=== PATIENT | female | born 1990 | race Caucasian/White ===

== ENCOUNTER 2020-09-09 13:06 | Outpatient (REF) | payer OTHER, SELFPAY ==
--- NOTE | ~2020-09-09 | XR_ITS ---
EXAMINATION: XR CHEST CLINICAL INFORMATION: Cough COMPARISON: None TECHNIQUE: 2 views of the chest were obtained. FINDINGS: No significant abnormality is noted involving the heart, lungs, mediastinum, bony thorax or soft tissues. XR/XR chest 2V IMPRESSION: Unremarkable examination.
== END 2020-09-09 13:07 | disposition home or self-care (01) ==
LOC: HO.HMGCX 13:06
PROVIDERS: PCP Internal Medicine; Visit Provider Physician Assistant
DX: R05 Cough (principal)
CPT/HCPCS: 71046

== ENCOUNTER → 2020-11-15 09:23 | Outpatient (BNVA) | payer OTHER, SELFPAY | PROVIDERS: PCP Internal Medicine; Referring Provider Internal Medicine; Visit Provider Obstetrics & Gynecology ==

== ENCOUNTER 2020-12-23 09:57 | Outpatient (REF) | payer OTHER, SELFPAY ==
[2020-12-23 10:28] LABS: MANUAL DIFF FLAG NO
[2020-12-23 10:40] LABS: Basophils Percent Auto 0.4 % (0-2); Eosinophils Absolute Auto 0.1 X10*3/uL (0.0-0.4); Eosinophils Percent Auto 1.5 % (0-4); Hematocrit 40.2 % (37-47); Hemoglobin 12.8 g/dl (12.0-16.0); Imm Gran Abs Auto 0.02 X10*3/uL (0.00-0.03); Imm Gran Pct Auto 0.3 % (0.0-0.4); Lymphocytes Percent Auto 27.1 % (20-40); Mean Corpuscular HGB Conc 31.8 g/dl (31.0-35.0); Mean Corpuscular Hemoglobin 28.6 pg (27.0-33.0); Mean Corpuscular Volume 89.7 fL (80-98); Mean Platelet Volume 10.7 fL (9.4-12.3); Monocytes Absolute Auto 0.7 X10*3/uL (0.1-1.2); Monocytes Percent Auto 10.1 % (2-11); Neutrophils Absolute Auto 4.4 X10*3/uL (2.0-8.3); Neutrophils Percent Auto 60.6 % (45-73); Platelet Count 302 X10*3/uL (160-400); Red Blood Count 4.48 X10*6/uL (4.20-5.50); Red Cell Distribution Width 13.2 % (11.0-16.0); White Blood Count 7.3 X10*3/uL (4.8-10.8)
[2020-12-23 10:58] LABS: Alanine Aminotransferase 21 U/L (0-31); Albumin Level 4.3 g/dL (3.5-5.0); Alkaline Phosphatase 56 U/L (39-117); Anion Gap 14 (12-20); Aspartate Amino Transferase 18 U/L (5-31); Bilirubin Total 0.3 mg/dL (0.0-1.0); Blood Urea Nitrogen 14 mg/dL (9-16); Calcium 9.5 mg/dL (8.4-10.2); Carbon Dioxide 24 mmol/L (22-29); Chloride 106 mmol/L (96-108); Cholesterol 204 mg/dL; Estimated Glomerular Filt Rate > 60; Glucose Fasting 89 mg/dL (60-99); HDL Cholesterol 57 mg/dL; LDL Cholesterol Calculated 111 mg/dl; Potassium 4.6 mmol/L (3.3-5.1); Sodium 139 mmol/L (135-145); Total Protein 7.5 g/dL (6.5-8.0); Triglycerides 182 mg/dL
[2020-12-23 11:18] LABS: TSH reflex Free T4 1.42 uIU/mL (0.32-4.0)
[2020-12-23 14:23] LABS: Vitamin B12 235 pg/mL (200-900)
[2020-12-29 14:40] LABS: Vitamin D 25-OH, D2 <4 ng/mL; Vitamin D 25-OH, D3 33 ng/mL; Vitamin D 25-OH, Total 33 ng/mL (30-100)
== END 2020-12-23 09:58 | disposition home or self-care (01) ==
LOC: HO.LAB 09:57
PROVIDERS: PCP Internal Medicine; Visit Provider Internal Medicine
DX: Z00.01 Encounter for general adult medical examination with abnormal findings (principal); R61 Generalized hyperhidrosis; F41.1 Generalized anxiety disorder; R53.83 Other fatigue; E66.09 Other obesity due to excess calories
CPT/HCPCS: 36415; 80053; 80061; 82306; 82607; 84443; 85025

== ENCOUNTER 2021-11-20 09:42 | Outpatient (REF) | payer OTHER, SELFPAY ==
[2021-11-20 14:22] LABS: CT PCR NOT DETECTED (Not Detect.); NG PCR NOT DETECTED (Not Detect.)
[2021-11-21 11:04] LABS: BV Int Neg Control Negative (Negative); BV Int Pos Control Positive (Positive)
[2021-11-26 08:57] LABS: HPV mRNA E6/E7 rflx Not Detected (Not Detected)
== END 2021-11-20 09:43 | disposition home or self-care (01) ==
LOC: HO.LAB 09:42
PROVIDERS: Visit Provider Advanced Practice Midwife
DX: Z01.419 Encounter for gynecological examination (general) (routine) without abnormal findings (principal); Q51.28 Other and unspecified doubling of uterus; Z11.3 Encounter for screening for infections with a predominantly sexual mode of transmission
CPT/HCPCS: 87480; 87491; 87510; 87591; 87624; 87660; 88142

== ENCOUNTER 2022-06-21 08:27 | Outpatient (REF) | payer OTHER, SELFPAY ==
[2022-06-21 11:31] LABS: MANUAL DIFF FLAG NO
[2022-06-21 11:45] LABS: Basophils Percent Auto 0.5 % (0-2); Eosinophils Absolute Auto 0.1 X10*3/uL (0.0-0.4); Hematocrit 42.1 % (37.0-47.0); Hemoglobin 13.6 g/dl (12.0-16.0); Imm Gran Abs Auto 0.02 X10*3/uL (0.00-0.03); Imm Gran Pct Auto 0.2 % (0.0-0.4); Lymphocytes Absolute Auto 1.8 X10*3/uL (1.2-4.9); Lymphocytes Percent Auto 21.4 % (20-40); Mean Corpuscular HGB Conc 32.3 g/dl (31.0-35.0); Mean Corpuscular Hemoglobin 29.2 pg (27.0-33.0); Mean Corpuscular Volume 90.5 fL (80.0-98.0); Mean Platelet Volume 10.8 fL (9.4-12.3); Monocytes Absolute Auto 0.7 X10*3/uL (0.1-1.2); Monocytes Percent Auto 8.6 % (2-11); Neutrophils Absolute Auto 5.7 x10*3/uL (2.0-8.3); Neutrophils Percent Auto 68.3 % (45-73); Platelet Count 287 X10*3/uL (160-400); Red Blood Count 4.65 X10*6/uL (4.20-5.50); Red Cell Distribution Width 13.5 % (11.0-16.0); White Blood Count 8.3 X10*3/uL (4.8-10.8)
[2022-06-21 12:40] LABS: Alanine Aminotransferase 19 U/L (0-31); Albumin Level 4.4 g/dL (3.5-5.0); Alkaline Phosphatase 64 U/L (39-117); Anion Gap 11 (12-20); Aspartate Amino Transferase 18 U/L (5-31); Bilirubin Total 0.6 mg/dL (0.0-1.0); Blood Urea Nitrogen 13 mg/dL (9-16); Calcium 9.2 mg/dL (8.4-10.2); Carbon Dioxide 24 mmol/L (22-29); Chloride 107 mmol/L (96-108); Cholesterol 238 mg/dL; Estimated Glomerular Filt Rate > 60; Glucose Fasting 94 mg/dL (60-99); HDL Cholesterol 51 mg/dL; LDL Cholesterol Calculated 161 mg/dl; Potassium 4.3 mmol/L (3.3-5.1); Sodium 138 mmol/L (135-145); Total Protein 7.3 g/dL (6.5-8.0); Triglycerides 132 mg/dL
[2022-06-21 12:52] LABS: TSH reflex Free T4 1.65 uIU/mL (0.32-4.0); Vitamin B12 615 pg/mL (200-900)
== END 2022-06-21 08:28 | disposition home or self-care (01) ==
LOC: HO.HMGCLDS 08:27
PROVIDERS: PCP Internal Medicine; Visit Provider Internal Medicine
DX: E66.9 Obesity, unspecified (principal); R20.2 Paresthesia of skin; H65.90 Unspecified nonsuppurative otitis media, unspecified ear; F41.1 Generalized anxiety disorder; Z91.09 Other allergy status, other than to drugs and biological substances
CPT/HCPCS: 36415; 80053; 80061; 82607; 84443; 85025

== ENCOUNTER 2022-10-14 11:38 | Outpatient (REF) | payer OTHER, SELFPAY ==
[2022-10-14 12:28] LABS: Influenza A PCR NEGATIVE (Negative); Influenza B PCR NEGATIVE (Negative); Resp Syncy Virus RNA Qual PCR NEGATIVE (Negative); SARS COV2 PCR INHOUSE NEGATIVE (Negative)
== END 2022-10-14 11:39 | disposition home or self-care (01) ==
LOC: HO.LNP 11:38
PROVIDERS: Visit Provider Physician Assistant
DX: Z20.822 Contact with and (suspected) exposure to COVID-19 (principal); J02.9 Acute pharyngitis, unspecified
CPT/HCPCS: 0241U

== ENCOUNTER 2022-10-23 12:10 | Outpatient (REF) | payer OTHER, SELFPAY | END 2022-10-23 12:11 | disposition home or self-care (01) | LOC: HO.LNP 12:10 | PROVIDERS: Visit Provider Internal Medicine | DX: N30.90 Cystitis, unspecified without hematuria (principal) | CPT/HCPCS: 87086; 87088; 87186 ==

== ENCOUNTER 2023-01-17 09:33 | Outpatient (AMB) | payer OTHER, SELFPAY ==
--- NOTE | 2023-01-17 09:35 | A.OFFPC_ITS ---
Vital Signs 01/17/23 09:36 Height 5 ft 3 in Weight 189 lb 4 oz BMI 33.5 BP 120/74 Blood Pressure Location Rt brachial Position Sitting Pulse 102 H Pulse Source Pulse Oximeter Pulse Oximetry (%) 96 Oxygen Delivery Method Room Air Intake Visit Reasons: 3 month follow up Allergies bee pollen Allergy (Intermediate, Verified 01/17/23 09:39) swelling itchy Medication List - Last Reconciled 01/17/23 by Hugo Gomez MD albuterol sulfate 90 mcg/actuation (ProAir HFA) 1 inh inhalation Q4-6H PRN buspirone 5 mg PO ONCE PRN 90 days cetirizine (Zyrtec) 10 mg PO DAILY PRN fluconazole (Diflucan) 150 mg PO Q3D 2 doses fluoxetine 10 mg PO DAILY 90 days gabapentin 200 mg (2 x 100 mg) PO BEDTIME 90 days glycopyrrolate 1 mg PO BID-TID PRN nitrofurantoin monohyd/m-cryst 100 mg (Macrobid) 100 mg PO Q12H 5 days norethindrone-ethin estradiol 1-35 mg-mcg (Nortrel) 1 tab PO DAILY ondansetron HCl 4 mg PO BID-TID PRN Tobacco use date assessed: 01/17/23 Dental Screening Dental Screen Date: 01/17/23 Did you have a dental visit in the last 12 months?: Yes Did you have a dental problem in the last 6 months where you did not have access to dental care?: No Was dental information given to patient?: Patient has dentist HPI 3 month follow up HPI Details Patient is 32-year-old female came in today for her regular follow-up appointment Patient has been having feeling of flushing excessive heat off and on We had a detailed discussion about it she also has excessive sweating problem , she is being treated for that through dermatology She is taking Glycopyrolate, and that is helping her. We had a detailed discussion about autonomic dysfunction, also hyperfunctioning thyroid can cause such feeling I have ordered labs for her she is to do them fasting Patient also have a elevated lipids that need to be monitored. Anxiety stable patient is on fluoxetine 10 mg and buspirone 5 mg daily Allergies are stable as well patient takes Zyrtec only as needed. Neuralgia pain has improved with gabapentin 200 mg at night. BMI is elevated at 33.5, patient is trying to lose weight. She is to return in 3 months for follow-up [facility] Medical History Tonsillectomy planned Asthma COVID-19 long hauler Cough present for greater than 3 weeks Surgical History [place] teeth extracted Social History Housing: House Patient Tobacco Use Status: Never used Tobacco e-Cigarette/Vaping Use: Never Used Second Hand Smoke Exposure: No Current occupational status: unemployed Cognitive needs: No Hearing needs: No Vision needs: No Female Reproductive History Menstrual Age of Menarche: 11 Questionnaire Thrive Questionnaire Date Thrive assessed: 06/21/22 AUDIT C Alcohol Use Questionnaire (AUDIT-C) 1. How often do you have a drink containing alcohol?: 2-4 times a month 2. How many drinks containing alcohol do you have on a typical day when you are drinking?: 1 or 2 3. How often do you have six or more drinks on one occasion?: Never Total Score: 2 Score Reviewed/Action Taken: Yes MILADYS-7 AMB Questionnaire MILADYS-7 Date MILADYS - 7 assessed: 06/21/22 Source: Developed by Drs. Garfield Kimball, Ailin Corrales, Julio C Slaughter and colleagues, with an educational andi from [employer]. Review of Systems Const Denies chills and Denies fever(s) ENT Denies epistaxis and Denies nasal discharge Card Denies chest pain Resp Denies chest congestion, Denies cough and Denies hemoptysis GI Denies diarrhea and Denies nausea Skin/Breast Denies rash Neuro Reports no additional complaints Psych Reports no additional complaints Endo Reports no additional complaints Physical exam (Primary Care) Vital Signs: Last Vital Signs Pulse 102 H 01/17/23 09:36 BP 120/74 01/17/23 09:36 Pulse Ox 96 01/17/23 09:36 Oxygen Delivery Method Room Air 01/17/23 09:36 BMI result Body Mass Index 33.5 Tobacco/Smoking Status: Tobacco use Status Tobacco use date assessed 01/17/23 01/17/23 09:40 Patient Tobacco Use Status Never used Tobacco 01/17/23 09:37 e-Cigarette/Vaping Use Never Used 01/17/23 09:37 Thrive Assessment: Date of Thrive Assessment Date Thrive assessed 06/21/22 01/17/23 09:37 Const General: cooperative, comfortable and no acute distress Orientation/consciousness: patient oriented x3 HENMT Head: Yes normocephalic Eyes General: appearance normal, both eyes and all related structures Neck Neck: Yes supple Resp Effort & Inspection: normal respiratory effort, no cough and no stridor Cardio Rhythm: regular rhythm Heart sounds: S1 normal heart sound present and S2 normal heart sound present Skin General skin exam: turgor normal Neuro General: patient oriented x3, tone normal and moves all extremities Extrem Right lower extremity: no edema Left lower extremity: no edema Assessment and Plan Assessment & Plan (1) Anxiety, generalized: Code(s): F41.1 - Generalized anxiety disorder (2) Hyperhidrosis: Code(s): R61 - Generalized hyperhidrosis (3) Obesity due to excess calories: Code(s): E66.09 - Other obesity due to excess calories Qualifiers: Obesity classification: adult class 1 (BMI 30 - 34.9) Serious obesity comorbidity presence: without serious comorbidity Body mass index: BMI 32.0- 32.9 Qualified Code(s): E66.09 - Other obesity due to excess calories; Z68.32 - Body mass index [BMI] 32.0-32.9, adult (4) Meralgia paraesthetica: Code(s): G57.10 - Meralgia paresthetica, unspecified lower limb Qualifiers: Laterality: left Qualified Code(s): G57.12 - Meralgia paresthetica, left lower limb (5) Environmental allergies: Code(s): Z91.09 - Other allergy status, other than to drugs and biological substances (6) Lipid disorder: Code(s): E78.9 - Disorder of lipoprotein metabolism, unspecified (7) Facial flushing: Code(s): R23.2 - Flushing Plan Patient is 32-year-old female came in today for her regular follow-up appointment Patient has been having feeling of flushing excessive heat off and on We had a detailed discussion about it she also has excessive sweating problem , she is being treated for that through dermatology She is taking Glycopyrolate, and that is helping her. We had a detailed discussion about autonomic dysfunction, also hyperfunctioning thyroid can cause such feeling I have ordered labs for her she is to do them fasting Patient also have a elevated lipids that need to be monitored. Anxiety stable patient is on fluoxetine 10 mg and buspirone 5 mg daily Allergies are stable as well patient takes Zyrtec only as needed. Neuralgia pain has improved with gabapentin 200 mg at night. BMI is elevated at 33.5, patient is trying to lose weight. She is to return in 3 months for follow-up Orders: Orders Complete Blood Count Auto Diff Today E66.09 - Other obesity due to excess calories, E78.9 - Disorder of lipoprotein metabolism, unspecified, F41.1 - Generalized anxiety disorder, G57.10 - Meralgia paresthetica, unspecified lower limb, R23.2 - Flushing, R61 - Generalized hyperhidrosis, Z91.09 - Other allergy status, other than to drugs and biological substances Vitamin B12 Today E66.09 - Other obesity due to excess calories, E78.9 - Disorder of lipoprotein metabolism, unspecified, F41.1 - Generalized anxiety disorder, G57.10 - Meralgia paresthetica, unspecified lower limb, R23.2 - Flushing, R61 - Generalized hyperhidrosis, Z91.09 - Other allergy status, other than to drugs and biological substances Vitamin D 25-OH (D2 and D3) Today E66.09 - Other obesity due to excess calories, E78.9 - Disorder of lipoprotein metabolism, unspecified, F41.1 - Generalized anxiety disorder, G57.10 - Meralgia paresthetica, unspecified lower limb, R23.2 - Flushing, R61 - Generalized hyperhidrosis, Z91.09 - Other allergy status, other than to drugs and biological substances Comprehensive [place]. Panel Fast Today E66.09 - Other obesity due to excess calories, E78.9 - Disorder of lipoprotein metabolism, unspecified, F41.1 - Generalized anxiety disorder, G57.10 - Meralgia paresthetica, unspecified lower limb, R23.2 - Flushing, R61 - Generalized hyperhidrosis, Z91.09 - Other allergy status, other than to drugs and biological substances Lipid Panel Today E66.09 - Other obesity due to excess calories, E78.9 - Disorder of lipoprotein metabolism, unspecified, F41.1 - Generalized anxiety disorder, G57.10 - Meralgia paresthetica, unspecified lower limb, R23.2 - Flushing, R61 - Generalized hyperhidrosis, Z91.09 - Other allergy status, other than to drugs and biological substances TSH reflex Free T4 Today E66.09 - Other obesity due to excess calories, E78.9 - Disorder of lipoprotein metabolism, unspecified, F41.1 - Generalized anxiety disorder, G57.10 - Meralgia paresthetica, unspecified lower limb, R23.2 - Flushing, R61 - Generalized hyperhidrosis, Z91.09 - Other allergy status, other than to drugs and biological substances Ferritin Today E66.09 - Other obesity due to excess calories, E78.9 - Disorder of lipoprotein metabolism, unspecified, F41.1 - Generalized anxiety disorder, G57.10 - Meralgia paresthetica, unspecified lower limb, R23.2 - Flushing, R61 - Generalized hyperhidrosis, Z91.09 - Other allergy status, other than to drugs and biological substances Coding Level of Care Code Est Pt Level 4 (16789) Diagnoses Anxiety, generalized F41.1 Hyperhidrosis R61 Class 1 obesity due to excess calories without serious comorbidity with body mass index (BMI) of 32.0 to 32.9 in adult E66.09; Z68.32 Obesity classification: adult class 1 (BMI 30 - 34.9) Serious obesity comorbidity presence: without serious comorbidity Body mass index: BMI 32.0-32.9 Meralgia paresthetica of left side G57.12 Laterality: left Environmental allergies Z91.09 Lipid disorder E78.9 Facial flushing R23.2
[2023-01-17 09:36] VITALS: BP 120/74; PULSE 102; O2SAT 96; BMI 33.5
== END 2023-01-17 11:18 | disposition home or self-care (01) ==
PROVIDERS: PCP Internal Medicine; Visit Provider Internal Medicine
DX: R61 Generalized hyperhidrosis (principal); Z68.32 Body mass index [BMI] 32.0-32.9, adult; Z91.09 Other allergy status, other than to drugs and biological substances; E66.09 Other obesity due to excess calories; F41.1 Generalized anxiety disorder; G57.12 Meralgia paresthetica, left lower limb; E78.9 Disorder of lipoprotein metabolism, unspecified; R23.2 Flushing
CPT/HCPCS: 99214

== ENCOUNTER 2023-01-29 10:22 | Outpatient (AMB) | payer OTHER, SELFPAY ==
--- NOTE | 2023-01-29 10:25 | MHC.OFFVIS ---
Intake Vital Signs 01/29/23 10:27 Height 5 ft 3 in Weight 192 lb BMI 34.0 BP 110/76 Intake Visit Reasons: [employer]IN [employer]ER annual exam Intake Note: randomly cramping not necessarily on her period Director Of Medical Review Required: No Information Interpreted: non-clinical & clinical Document Photographer: Document Photographer Present (Aidyn) Allergies bee pollen Allergy (Intermediate, Verified 01/29/23 10:30) swelling itchy Medication List - Last Reconciled 01/29/23 by Areli Nixon CNM albuterol sulfate 90 mcg/actuation (ProAir HFA) 1 inh inhalation Q4-6H PRN buspirone 5 mg PO ONCE PRN 90 days cetirizine (Zyrtec) 10 mg PO DAILY PRN fluoxetine 10 mg PO DAILY 90 days gabapentin 200 mg (2 x 100 mg) PO BEDTIME 90 days glycopyrrolate 1 mg PO BID-TID PRN norethindrone-ethin estradiol 1-35 mg-mcg (Nortrel) 1 tab PO DAILY ondansetron HCl 4 mg PO BID-TID PRN Is last menstrual period known: Yes Last menstrual period: 12/30/22 Post menopausal: No HPI [employer]IN [employer]ER annual exam HPI Details 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 She is on control pills and has been since she was very young. Extensive discussion took place about her history of the past year including visit last year when she was off the pills, and not sexually active and I recommend she take is sometime at that time to see what her periods would be like without being on the pills but then she became sexually active and she started back on the pills again. She had a didelphys uterus diagnosed some years ago when a flap of skin was noted 0 covering her cervix. Extensive discussion took place it past visits about this and was refreshed again with the patient today today she also is curious about PCOS because she has been reading about it and she looked up cramping and PCOS came up is 1 of the possibilities she does not have increased facial hair she does struggle with weight. She does have times when she still very fatigued she finds that if she smokes weed it gives her energy and then she can go exercise and work out and she does weight lifting and crunches and various other exercises. She has been on the pills since her for 5 months break last year and likes them and they work for her and she is not interested in changing them. She is sexually active. She is not in a place where she is contemplating any childbearing at this time ?not yet?. She does know that she may have challenges both getting and then continuing the past the early stage and also challenges with pre term labor and most likely a need for . She does have elevated cholesterol and she has fasting labs that she has to go get done for her primary care provider. She has had her thyroid checked in that turned out fine she says her primary cyst exploring other possibilities for her symptoms of fatigue and hot flashes and exploring autoimmune issues. [facility] Medical History (Updated 01/29/23 @ 11:23 by Areli Nxion CNM) Uterus didelphus Tonsillectomy planned Asthma COVID-19 long hauler Cough present for greater than 3 weeks Surgical History [place] teeth extracted Social History (Updated 01/29/23 @ 10:32 by NASREEN Arcos) Housing: House Alcohol intake: current Alcohol intake frequency: holidays/special occasions only Patient Tobacco Use Status: Never used Tobacco e-Cigarette/Vaping Use: Never Used Second Hand Smoke Exposure: No Current occupational status: unemployed Cognitive needs: No Hearing needs: No Vision needs: No Female Reproductive History Menstrual Age of Menarche: 11 Duration of menses: 3-5 days Date of last menstrual period: 12/30/22 control method: pills Total pregnancies: 0 Date of last pap smear: 11/21/21 (negative) History of abnormal pap smear: Yes (ASCUS 2018) Physical Exam Vital Signs: Last Vital Signs BP 110/76 01/29/23 10:27 BMI result Body Mass Index 34.0 Const General: healthy appearing, comfortable, no acute distress, well developed and alert Nutritional Appearance: average body habitus Orientation/consciousness: patient oriented x3 Limitations: no limitations HEENT Head: Yes normocephalic Neck Neck: Yes normal visual inspection Thyroid: Thyroid normal Chest Chest palpation & inspection: normal inspection of the chest Breast/axilla inspection: normal inspection of the breasts and normal inspection of the axillae Breast/axilla palpation: normal palpation of the breasts and normal palpation of the axillae Resp Effort & Inspection: normal respiratory effort GI Inspection: Yes normal to inspection, No Abdominal wall edema and No distended Palpation (GI): Soft to palpation and nontender Other: Cervicis difficult to visualize today during this exam. They are pink and smooth by tissue between them left one appears more prominent today than the right one. Uterus is normal sized nontender not enlarged adnexa nontender excellent tone with Kegel General: Yes bladder normal to palpation External Female Exam: normal external appearance and normal appearance of the urethra Speculum Exam - Vagina: normal appearance of the vagina, normal palpation and normal vaginal discharge Speculum Exam - Cervix: normal appearance of the cervix, normal palpation and nontender Bimanual exam- vagina & uterus: normal bimanual exam, normal palpation, uterine size normal, bladder normal to palpation, consistency normal, normal palpation, uterine mobility normal, uterine shape normal, No Cervical tenderness present, non-tender and no cervical motion tenderness Bimanual Exam- Adnexa, other: normal adnexae, no masses, normal and No adnexal tenderness Neuro General: patient oriented x3 Results Reviewed Results Reviewed: Name: Bernice Severino Age/Sex: 31/F Attending: Areli Nixon CNM : 1990 Submitted by: Areli Nixon CNM Copies to: MR #: [id number] Status: DEP REF Collected: 11/20/21 Location: .LAB Received: 11/21/21 Interpretation A. Satisfactory for evaluation. No endocervical cells seen. Negative for intraepithelial lesion or malignancy. HPV mRNA E6/E7: NOT DETECTED This assay detects E6/E7 viral messenger RNA (mRNA) from 14 high-risk HPV types (16, 18, 31, 33, 35, 39, 45, 51, 52, 56, 58, 59, 66, 68) HPV testing performed by [facility], [place], [place]. See reference laboratory pion of the EMR for entire report. B. Satisfactory for evaluation. Negative for intraepithelial lesion or malignancy. HPV mRNA E6/E7: NOT DETECTED This assay detects E6/E7 viral messenger RNA (mRNA) from 14 high-risk HPV types (16, 18, 31, 33, 35, 39, 45, 51, 52, 56, 58, 59, 66, 68) HPV testing performed by [facility], [place], [place]. See reference laboratory pion of the EMR for entire report. 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 B. Left cervix, equals negative with negative HPV. Code(s): Z12.4 - Encounter for screening for malignant neoplasm of cervix (4) Counseling for control, oral contraceptives: Code(s): Z30.09 - Encounter for other general counseling and advice on contraception (5) Well woman exam with routine gynecological exam: Code(s): Z01.419 - Encounter for gynecological examination (general) (routine) without abnormal findings (6) Obesity due to excess calories: Code(s): E66.09 - Other obesity due to excess calories Qualifiers: Obesity classification: adult class 1 (BMI 30 - 34.9) Serious obesity comorbidity presence: without serious comorbidity Body mass index: BMI 32.0-32.9 Qualified Code(s): E66.09 - Other obesity due to excess calories; Z68.32 - Body mass index [BMI] 32.0-32.9, adult (7) Tiredness: Code(s): R53.83 - Other fatigue (8) Uterine cramping: Code(s): N94.89 - Other specified conditions associated with female genital organs and menstrual cycle Plan 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 She is on control pills and has been since she was very young. Extensive discussion took place about her history of the past year including visit last year when she was off the pills, and not sexually active and I recommend she take is sometime at that time to see what her periods would be like without being on the pills but then she became sexually active and she started back on the pills again. She had a didelphys uterus diagnosed some years ago when a flap of skin was noted 0 covering her cervix. Extensive discussion took place it past visits about this and was refreshed again with the patient today today she also is curious about PCOS because she has been reading about it and she looked up cramping and PCOS came up is 1 of the possibilities she does not have increased facial hair she does struggle with weight. She does have times when she still very fatigued she finds that if she smokes weed it gives her energy and then she can go exercise and work out and she does weight lifting and crunches and various other exercises. She has been on the pills since her for 5 months break last year and likes them and they work for her and she is not interested in changing them. She is sexually active. She is not in a place where she is contemplating any childbearing at this time ?not yet?. She does know that she may have challenges both getting and then continuing the past the early stage and also challenges with pre term labor and most likely a need for . She does have elevated cholesterol and she has fasting labs that she has to go get done for her primary care provider. She has had her thyroid checked in that turned out fine she says her primary cyst exploring other possibilities for her symptoms of fatigue and hot flashes and exploring autoimmune issues. In light of all of the above all of these issues were explored in detail. Decision made to order up pelvic ultrasound just to see if there is development of anything that could explain her cramping. Her periods are still never quite ?? normal they sometimes are just very light and brown and spotty and then sometimes still be read every few months they come at the right time with the pills and she does like that. Explored whether not she was interested or had any symptoms that really aligned with PCOS and she does not really have any others with the possible exception of the obesity but she does not have any facial hair or anything like that discussed that I may add some labs to her order for her fasting labs that she will be getting done soon. Will have a tele visit after the ultrasound to review the results. Additionally I am refilling her control pills for her explored the possibility of lowering the does but she is happy on these pills so we are leaving them as they are. Orders: Orders Bacterial Vaginosis Panel Today Q51.28 - Other and unspecified doubling of uterus, Z01.419 - Encounter for gynecological examination (general) (routine) without abnormal findings Pap Smear Today Q51.28 - Other and unspecified doubling of uterus, Z01.419 - Encounter for gynecological examination (general) (routine) without abnormal findings US pelvic and transvaginal Today E66.09 - Other obesity due to excess calories, N94.89 - Other specified conditions associated with female genital organs and menstrual cycle, Q51.28 - Other and unspecified doubling of uterus, R53.83 - Other fatigue, Z01.419 - Encounter for gynecological examination (general) (routine) without abnormal findings, Z12.4 - Encounter for screening for malignant neoplasm of cervix, Z20.2 - Contact with and (suspected) exposure to infections with a predominantly sexual mode of transmission, Z30.09 - Encounter for other general counseling and advice on contraception CT NG by PCR Today Q51.28 - Other and unspecified doubling of uterus, Z01.419 - Encounter for gynecological examination (general) (routine) without abnormal findings Testosterone, Free/Total Today N94.89 - Other specified conditions associated with female genital organs and menstrual cycle, Q51.28 - Other and unspecified doubling of uterus, Z01.419 - Encounter for gynecological examination (general) (routine) without abnormal findings, Z12.4 - Encounter for screening for malignant neoplasm of cervix, Z20.2 - Contact with and (suspected) exposure to infections with a predominantly sexual mode of transmission, Z30.09 - Encounter for other general counseling and advice on contraception Medications: Refilled norethindrone-ethin estradiol 1-35 mg-mcg (Nortrel) 1 tab PO DAILY 84 tabs 4RF Coding Level of Care Code Est Pt Prev Care 18-39y(85489) Diagnoses Uterus didelphus Q51.28 Potential exposure to STD Z20.2 Cervical cancer screening Z12.4 Counseling for control, oral contraceptives Z30.09 Well woman exam with routine gynecological exam Z01.419 Class 1 obesity due to excess calories without serious comorbidity with body mass index (BMI) of 32.0 to 32.9 in adult E66.09; Z68.32 Obesity classification: adult class 1 (BMI 30 - 34.9) Serious obesity comorbidity presence: without serious comorbidity Body mass index: BMI 32.0-32.9 Tiredness R53.83 Uterine cramping N94.89
[2023-01-29 10:27] VITALS: BP 110/76; BMI 34.0
== END 2023-01-29 11:27 | disposition home or self-care (01) ==
PROVIDERS: PCP Internal Medicine; Visit Provider Advanced Practice Midwife
DX: Z01.419 Encounter for gynecological examination (general) (routine) without abnormal findings (principal); Q51.28 Other and unspecified doubling of uterus; E66.09 Other obesity due to excess calories; Z68.32 Body mass index [BMI] 32.0-32.9, adult
CPT/HCPCS: 99395

== ENCOUNTER 2023-01-29 10:22 | Outpatient (REF) | payer OTHER, SELFPAY ==
[2023-01-29 16:50] LABS: CT PCR NOT DETECTED (Not Detect.); NG PCR NOT DETECTED (Not Detect.)
[2023-01-30 14:30] LABS: BV Int Neg Control Negative (Negative); BV Int Pos Control Positive (Positive)
[2023-01-31 22:43] LABS: HPV mRNA E6/E7 rflx Not Detected (Not Detected)
== END 2023-01-29 10:23 | disposition home or self-care (01) ==
LOC: HO.LNP 10:22
PROVIDERS: PCP Internal Medicine; Visit Provider Advanced Practice Midwife
DX: Z01.419 Encounter for gynecological examination (general) (routine) without abnormal findings (principal); Z11.51 Encounter for screening for human papillomavirus (HPV); Z20.2 Contact with and (suspected) exposure to infections with a predominantly sexual mode of transmission; Q51.28 Other and unspecified doubling of uterus
CPT/HCPCS: 0353U; 87480; 87510; 87624; 87660; 88142

== ENCOUNTER 2023-02-25 15:38 | Outpatient (REF) | payer OTHER, SELFPAY ==
--- NOTE | ~2023-02-25 | US_ITS ---
EXAMINATION: US PELVIS CLINICAL INFORMATION: Encounter for gynecologic examination. Last menstrual period a month ago. COMPARISON: Pelvic ultrasound 08/05/2017. TECHNIQUE: Ultrasound of the pelvis is performed using both transabdominal and transvaginal transducers along with Doppler. Transvaginal imaging is performed due to inadequate visualization transabdominally. FINDINGS: The uterus is anteverted and measures 7.8 x 2.6 x 3.7 cm and is heterogeneous. No discrete fibroids identified. 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 Endometrium in the right uterine horn with thickness of 0.2 cm and endometrium in the left uterine horn with thickness of 0.2 cm. There is no significant free fluid. Bilateral ovaries are unremarkable. Right ovary measures 2.6 x 0.9 x 1.9 cm, volume 2.3 mL. Left ovary measures 3.6 x 1.1 x 1.8 cm, volume 3.7 mL. US/US pelvic and transvaginal IMPRESSION: 1. No discrete fibroids. 2. 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 Endometrium in the right uterine horn with thickness of 0.2 cm and endometrium in the left uterine horn with thickness of 0.2 cm.
== END 2023-02-25 15:39 | disposition home or self-care (01) ==
LOC: HO.US 15:38
PROVIDERS: PCP Internal Medicine; Visit Provider Advanced Practice Midwife
DX: Q51.28 Other and unspecified doubling of uterus (principal); Z20.2 Contact with and (suspected) exposure to infections with a predominantly sexual mode of transmission; E66.09 Other obesity due to excess calories; R53.83 Other fatigue; N94.89 Other specified conditions associated with female genital organs and menstrual cycle
CPT/HCPCS: 76830; 76856

== ENCOUNTER → 2023-03-07 13:15 | Outpatient (BNVA) | payer OTHER, SELFPAY | PROVIDERS: PCP Internal Medicine; Visit Provider Advanced Practice Midwife ==

== ENCOUNTER 2023-04-14 07:17 | Outpatient (REF) | payer OTHER, SELFPAY ==
[2023-04-14 11:15] LABS: MANUAL DIFF FLAG NO
[2023-04-14 11:50] LABS: Basophils Percent Auto 0.4 % (0-2); Eosinophils Absolute Auto 0.2 X10*3/uL (0.0-0.4); Eosinophils Percent Auto 2.2 % (0-4); Hematocrit 39.9 % (37.0-47.0); Hemoglobin 13.1 g/dl (12.0-16.0); Imm Gran Abs Auto 0.02 X10*3/uL (0.00-0.03); Imm Gran Pct Auto 0.3 % (0.0-0.4); Lymphocytes Absolute Auto 2.7 X10*3/uL (1.2-4.9); Lymphocytes Percent Auto 37.4 % (20-40); Mean Corpuscular HGB Conc 32.8 g/dl (31.0-35.0); Mean Corpuscular Hemoglobin 29.3 pg (27.0-33.0); Mean Corpuscular Volume 89.3 fL (80.0-98.0); Mean Platelet Volume 11.1 fL (9.4-12.3); Monocytes Absolute Auto 0.6 X10*3/uL (0.1-1.2); Monocytes Percent Auto 8.1 % (2-11); Neutrophils Absolute Auto 3.8 x10*3/uL (2.0-8.3); Neutrophils Percent Auto 51.6 % (45-73); Platelet Count 312 X10*3/uL (160-400); Red Blood Count 4.47 X10*6/uL (4.20-5.50); Red Cell Distribution Width 13.2 % (11.0-16.0); White Blood Count 7.3 X10*3/uL (4.8-10.8)
[2023-04-14 12:09] LABS: Alanine Aminotransferase 17 U/L (0-31); Albumin Level 4.2 g/dL (3.5-5.0); Alkaline Phosphatase 42 U/L (39-117); Anion Gap 12 (12-20); Aspartate Amino Transferase 19 U/L (5-31); Bilirubin Total 0.5 mg/dL (0.0-1.0); Blood Urea Nitrogen 13 mg/dL (9-16); Calcium 9.1 mg/dL (8.4-10.2); Carbon Dioxide 21 mmol/L (22-29); Chloride 107 mmol/L (96-108); Cholesterol 223 mg/dL (<200); Estimated Glomerular Filt Rate > 60; Glucose Fasting 89 mg/dL (60-99); HDL Cholesterol 49 mg/dL (>40); LDL Cholesterol Calculated 139 mg/dL (<100); Potassium 3.8 mmol/L (3.3-5.1); Sodium 136 mmol/L (135-145); Total Protein 7.6 g/dL (6.5-8.0); Triglycerides 178 mg/dL (<150)
[2023-04-14 12:13] LABS: Ferritin 159 ng/mL (10-122); TSH reflex Free T4 2.78 uIU/mL (0.32-4.0)
[2023-04-14 12:23] LABS: Vitamin B12 626 pg/mL (200-900)
[2023-04-17 13:14] LABS: Vitamin D 25-OH, D2 <4 ng/mL; Vitamin D 25-OH, D3 27 ng/mL; Vitamin D 25-OH, Total 27 ng/mL (30-100)
[2023-04-18 22:48] LABS: Testosterone, Free 1.2 pg/mL (0.1-6.4); Testosterone, Total 18 ng/dL (2-45)
== END 2023-04-14 07:18 | disposition home or self-care (01) ==
LOC: HO.HMGCLDS 07:17
PROVIDERS: Absent Provider Advanced Practice Midwife; PCP Internal Medicine; Visit Provider Internal Medicine
DX: F41.1 Generalized anxiety disorder (principal); R61 Generalized hyperhidrosis; E66.09 Other obesity due to excess calories; Z91.09 Other allergy status, other than to drugs and biological substances; G57.10 Meralgia paresthetica, unspecified lower limb; E78.9 Disorder of lipoprotein metabolism, unspecified; R23.2 Flushing; N94.89 Other specified conditions associated with female genital organs and menstrual cycle; Q51.28 Other and unspecified doubling of uterus; Z20.2 Contact with and (suspected) exposure to infections with a predominantly sexual mode of transmission
CPT/HCPCS: 36415; 80053; 80061; 82306; 82607; 82728; 84402; 84403; 84443; 85025

== ENCOUNTER 2023-04-18 15:14 | Outpatient (AMB) | payer OTHER, SELFPAY ==
--- NOTE | 2023-04-18 15:24 | A.OFFPC_ITS ---
Vital Signs 04/18/23 15:25 Height 5 ft 3 in Weight 192 lb BMI 34.0 BP 112/80 Blood Pressure Location Rt brachial Position Sitting Pulse 88 Pulse Source Pulse Oximeter Pulse Oximetry (%) 98 Oxygen Delivery Method Room Air Intake Visit Reasons: 3 Month follow up Allergies bee pollen Allergy (Intermediate, Verified 04/18/23 15:28) swelling itchy Medication List - Last Reconciled 04/18/23 by Hugo Gomez MD albuterol sulfate 90 mcg/actuation (ProAir HFA) 1 inh inhalation Q4-6H PRN buspirone 5 mg PO ONCE PRN 90 days cetirizine (Zyrtec) 10 mg PO DAILY PRN fluoxetine 10 mg PO DAILY 90 days gabapentin 200 mg (2 x 100 mg) PO BEDTIME 90 days glycopyrrolate 1 mg PO BID-TID PRN norethindrone-ethin estradiol 1-35 mg-mcg (Nortrel) 1 tab PO DAILY ondansetron HCl 4 mg PO BID-TID PRN Tobacco use date assessed: 04/18/23 Dental Screening Dental Screen Date: 04/18/23 Did you have a dental visit in the last 12 months?: Yes Did you have a dental problem in the last 6 months where you did not have access to dental care?: No Was dental information given to patient?: Patient has dentist HPI 3 Month follow up HPI Details Patient is 32-year-old female came in today for her regular follow-up appointment Anxiety stable patient is on fluoxetine 10 mg and buspirone 5 mg as needed Allergies are stable as well patient takes Zyrtec only as needed. Neuralgia pain has improved with gabapentin 200 mg at night. Patient says that she feels as if the paresthesias spreading I am increasing gabapentin to 300 mg, and chiropractor referral placed even though she has no pain in the lumbar area it might help her BMI is elevated at trying to lose weight Follow-up in August [facility] Medical History Uterus didelphus Tonsillectomy planned Asthma COVID-19 long hauler Cough present for greater than 3 weeks Surgical History [place] teeth extracted Social History Housing: House Alcohol intake: current Alcohol intake frequency: holidays/special occasions only Patient Tobacco Use Status: Never used Tobacco e-Cigarette/Vaping Use: Never Used Second Hand Smoke Exposure: No Current occupational status: unemployed Cognitive needs: No Hearing needs: No Vision needs: No Female Reproductive History Menstrual Age of Menarche: 11 Questionnaire Thrive Questionnaire Date Thrive assessed: 06/21/22 MILADYS-7 AMB Questionnaire MILADYS-7 Date MILADYS - 7 assessed: 06/21/22 Source: Developed by Drs. Garfield Kimball, Ailin Corrales, Julio C Slaughter and colleagues, with an educational andi from [employer]. Review of Systems Const Denies chills and Denies fever(s) ENT Denies epistaxis and Denies nasal discharge Card Denies chest pain Resp Denies chest congestion, Denies cough and Denies hemoptysis GI Denies diarrhea and Denies nausea Skin/Breast Denies rash Neuro Reports no additional complaints Psych Reports no additional complaints Endo Reports no additional complaints Physical exam (Primary Care) Vital Signs: Last Vital Signs Pulse 88 04/18/23 15:25 BP 112/80 04/18/23 15:25 Pulse Ox 98 04/18/23 15:25 Oxygen Delivery Method Room Air 04/18/23 15:25 BMI result Body Mass Index 34.0 Tobacco/Smoking Status: Tobacco use Status Tobacco use date assessed 04/18/23 04/18/23 15:29 Patient Tobacco Use Status Never used Tobacco 04/18/23 15:29 e-Cigarette/Vaping Use Never Used 04/18/23 15:29 Thrive Assessment: Date of Thrive Assessment Date Thrive assessed 06/21/22 04/18/23 15:29 Const General: cooperative, comfortable and no acute distress Orientation/consciousness: patient oriented x3 HENMT Head: Yes normocephalic Eyes General: appearance normal, both eyes and all related structures Neck Neck: Yes supple Resp Effort & Inspection: normal respiratory effort, no cough and no stridor Cardio Rhythm: regular rhythm Heart sounds: S1 normal heart sound present and S2 normal heart sound present Skin General skin exam: turgor normal Neuro General: patient oriented x3, tone normal and moves all extremities Extrem Right lower extremity: no edema Left lower extremity: no edema Assessment and Plan Assessment & Plan (1) Meralgia paraesthetica: Code(s): G57.10 - Meralgia paresthetica, unspecified lower limb Qualifiers: Laterality: left Qualified Code(s): G57.12 - Meralgia paresthetica, left lower limb (2) Pinched nerve: Code(s): G58.9 - Mononeuropathy, unspecified (3) Anxiety, generalized: Code(s): F41.1 - Generalized anxiety disorder (4) Obesity due to excess calories: Code(s): E66.09 - Other obesity due to excess calories Qualifiers: Obesity classification: adult class 1 (BMI 30 - 34.9) Serious obesity comorbidity presence: without serious comorbidity Body mass index: BMI 32.0- 32.9 Qualified Code(s): E66.09 - Other obesity due to excess calories; Z68.32 - Body mass index [BMI] 32.0-32.9, adult (5) Environmental allergies: Code(s): Z91.09 - Other allergy status, other than to drugs and biological substances (6) Lipid disorder: Code(s): E78.9 - Disorder of lipoprotein metabolism, unspecified Plan Patient is 32-year-old female came in today for her regular follow-up appointment Anxiety stable patient is on fluoxetine 10 mg and buspirone 5 mg as needed Allergies are stable as well patient takes Zyrtec only as needed. Neuralgia pain has improved with gabapentin 200 mg at night. Patient says that she feels as if the paresthesias spreading I am increasing gabapentin to 300 mg, and chiropractor referral placed even though she has no pain in the lumbar area it might help her BMI is elevated at trying to lose weight Follow-up in August Orders: Referrals Chiropractic Referral G57.10 - Meralgia paresthetica, unspecified lower limb, G58.9 - Mononeuropathy, unspecified Medications: Changed From gabapentin 200 mg (2 x 100 mg) PO BEDTIME 90 days 180 caps 0RF To gabapentin 300 mg PO BEDTIME 90 caps 0RF 90 days Coding Level of Care Code Est Pt Level 3 (41191) Diagnoses Meralgia paresthetica of left side G57.12 Laterality: left Pinched nerve G58.9 Anxiety, generalized F41.1 Class 1 obesity due to excess calories without serious comorbidity with body mass index (BMI) of 32.0 to 32.9 in adult E66.09; Z68.32 Obesity classification: adult class 1 (BMI 30 - 34.9) Serious obesity comorbidity presence: without serious comorbidity Body mass index: BMI 32.0-32.9 Environmental allergies Z91.09 Lipid disorder E78.9
[2023-04-18 15:25] VITALS: BP 112/80; PULSE 88; O2SAT 98; BMI 34.0
== END 2023-04-18 17:06 | disposition home or self-care (01) ==
PROVIDERS: PCP Internal Medicine; Visit Provider Internal Medicine
DX: G57.12 Meralgia paresthetica, left lower limb (principal); E66.09 Other obesity due to excess calories; G58.9 Mononeuropathy, unspecified; Z68.34 Body mass index [BMI] 34.0-34.9, adult; F41.1 Generalized anxiety disorder; Z68.32 Body mass index [BMI] 32.0-32.9, adult; Z91.09 Other allergy status, other than to drugs and biological substances; E78.9 Disorder of lipoprotein metabolism, unspecified
CPT/HCPCS: 99213

== ENCOUNTER 2023-07-30 15:52 | Outpatient (REF) | payer OTHER, SELFPAY ==
[2023-08-01 12:54] LABS: BV Int Neg Control Negative (Negative); BV Int Pos Control Positive (Positive)
== END 2023-07-30 15:53 | disposition home or self-care (01) ==
LOC: HO.LAB 15:52
PROVIDERS: Visit Provider Internal Medicine
DX: R10.2 Pelvic and perineal pain (principal)
CPT/HCPCS: 87480; 87510; 87660

== ENCOUNTER 2023-08-27 09:44 | Outpatient (REF) | payer OTHER, SELFPAY ==
[2023-08-27 13:12] LABS: MANUAL DIFF FLAG NO
[2023-08-27 13:37] LABS: Basophils Percent Auto 0.6 % (0-2); Eosinophils Absolute Auto 0.2 X10*3/uL (0.0-0.4); Eosinophils Percent Auto 2.2 % (0-4); Hemoglobin 12.8 g/dl (12.0-16.0); Imm Gran Abs Auto 0.02 X10*3/uL (0.00-0.03); Imm Gran Pct Auto 0.3 % (0.0-0.4); Lymphocytes Absolute Auto 1.9 X10*3/uL (1.2-4.9); Lymphocytes Percent Auto 26.7 % (20-40); Mean Corpuscular Hemoglobin 28.7 pg (27.0-33.0); Mean Corpuscular Volume 89.7 fL (80.0-98.0); Mean Platelet Volume 10.8 fL (9.4-12.3); Monocytes Absolute Auto 0.6 X10*3/uL (0.1-1.2); Monocytes Percent Auto 8.7 % (2-11); Neutrophils Absolute Auto 4.4 x10*3/uL (2.0-8.3); Neutrophils Percent Auto 61.5 % (45-73); Platelet Count 322 X10*3/uL (160-400); Red Blood Count 4.46 X10*6/uL (4.20-5.50); Red Cell Distribution Width 13.4 % (11.0-16.0); White Blood Count 7.2 X10*3/uL (4.8-10.8)
[2023-08-27 14:10] LABS: Anion Gap 9 (12-20)
[2023-08-27 14:14] LABS: Alanine Aminotransferase 17 U/L (0-31); Alkaline Phosphatase 52 U/L (39-117); Aspartate Amino Transferase 17 U/L (5-31); Bilirubin Total 0.3 mg/dL (0.0-1.0); Blood Urea Nitrogen 12 mg/dL (9-16); Calcium 8.9 mg/dL (8.4-10.2); Carbon Dioxide 25 mmol/L (22-29); Chloride 106 mmol/L (96-108); Estimated Glomerular Filt Rate > 60; Ferritin 124 ng/mL (10-122); Glucose Random 85 mg/dL (60-115); HCG Quantitative < 2 mIU/mL; Sodium 136 mmol/L (135-145); Total Protein 7.5 g/dL (6.5-8.0)
== END 2023-08-27 09:45 | disposition home or self-care (01) ==
LOC: HO.HMGCLDS 09:44
PROVIDERS: PCP Internal Medicine; Visit Provider Internal Medicine
DX: R10.2 Pelvic and perineal pain (principal); G57.10 Meralgia paresthetica, unspecified lower limb; Z91.09 Other allergy status, other than to drugs and biological substances; E66.09 Other obesity due to excess calories; F41.1 Generalized anxiety disorder; E78.9 Disorder of lipoprotein metabolism, unspecified
CPT/HCPCS: 36415; 80053; 82728; 84702; 85025

== ENCOUNTER 2023-10-22 15:27 | Outpatient (AMB) | payer OTHER, SELFPAY ==
[2023-10-22 15:31] VITALS: BP 112/72; PULSE 90; O2SAT 98; BMI 34.8
--- NOTE | 2023-10-22 15:31 | MHC.PC.OV ---
Vital Signs 10/22/23 15:31 Height 5 ft 3 in Weight 196 lb 8 oz BMI 34.8 BP 112/72 Blood Pressure Location Rt brachial Position Sitting Pulse 90 Pulse Source Pulse Oximeter Pulse Oximetry (%) 98 Oxygen Delivery Method Room Air Intake Visit Reasons: Annual Physical Allergies bee pollen Allergy (Intermediate, Verified 10/22/23 15:34) swelling itchy Medication List - Last Reconciled 10/22/23 by Hugo Gomez MD albuterol sulfate 90 mcg/actuation (ProAir HFA) 1 inh inhalation Q4-6H PRN buspirone 5 mg PO ONCE PRN 90 days cetirizine (Zyrtec) 10 mg PO DAILY PRN fluoxetine 10 mg PO DAILY 90 days gabapentin 300 mg PO BEDTIME 90 days glycopyrrolate 1 mg PO BID-TID PRN norethindrone-ethin estradiol 1-35 mg-mcg (Nortrel) 1 tab PO DAILY Tobacco use date assessed: 10/22/23 Dental Screening Dental Screen Date: 10/22/23 Did you have a dental visit in the last 12 months?: Yes Did you have a dental problem in the last 6 months where you did not have access to dental care?: No Was dental information given to patient?: Patient has dentist HPI Annual Physical HPI Details Patient is a 33-year-old female came in for physical exam Established with [facility] Last set of lab reviewed Patient offer no new complaint today except burning and numbness left upper thigh area get worse off and on Gabapentin 300 mg is helping, I have also sent Lidoderm patches for the days when symptoms are worse. Last set of lab showed ferritin level has improved to almost normal Anxiety stable patient is on fluoxetine and buspirone. She is trying to lose weight as well by exercising more. Follow-up 3 months physical exam 1 year [facility] Medical History Uterus didelphus Tonsillectomy planned Asthma COVID-19 long hauler Cough present for greater than 3 weeks Surgical History [place] teeth extracted Social History Housing: House Alcohol intake: current Alcohol intake frequency: holidays/special occasions only Patient Tobacco Use Status: Never used Tobacco e-Cigarette/Vaping Use: Never Used Second Hand Smoke Exposure: No Current occupational status: unemployed Cognitive needs: No Hearing needs: No Vision needs: No Female Reproductive History Menstrual Age of Menarche: 11 Questionnaire Thrive Questionnaire Date Thrive assessed: 06/21/22 AUDIT C Alcohol Use Questionnaire (AUDIT-C) 1. How often do you have a drink containing alcohol?: 2-4 times a month 2. How many drinks containing alcohol do you have on a typical day when you are drinking?: 1 or 2 3. How often do you have six or more drinks on one occasion?: Never Total Score: 2 Score Reviewed/Action Taken: Yes MILADYS-7 AMB Questionnaire MILADYS-7 Date MILADYS - 7 assessed: 06/21/22 Source: Developed by Drs. Garfield Kimball, Ailin Corrales, Julio C Slaughter and colleagues, with an educational andi from [employer]. Review of Systems Const Denies chills, Denies fever(s) and Denies headache(s) Eyes Denies blurry vision ENT Denies headache(s), Denies nasal discharge, Denies nasal obstruction, Denies odynophagia and Denies sinus pain Card Denies chest pain at rest and Denies chest pain with activity Resp Denies cough and Denies hemoptysis GI Denies diarrhea, Denies odynophagia, Denies vomiting and Denies hematemesis Reports as per HPI Musc Denies abnormal gait Skin/Breast Reports as per HPI Neuro Denies Neuro-related abnormal movements, Denies Abnormal speech present, Denies abnormal gait, Denies headache(s) and Denies Sensory deficit (Neuro) Psych Denies mood swings and Denies paranoia Endo Reports as per HPI Ismael/Lymph Reports as per HPI Aller/Immun Reports as per HPI Physical exam (Primary Care) Vital Signs: Last Vital Signs Pulse 90 10/22/23 15:31 BP 112/72 10/22/23 15:31 Pulse Ox 98 10/22/23 15:31 Oxygen Delivery Method Room Air 10/22/23 15:31 BMI result Body Mass Index 34.8 Tobacco/Smoking Status: Tobacco use Status Tobacco use date assessed 10/22/23 10/22/23 15:34 Patient Tobacco Use Status Never used Tobacco 10/22/23 15:34 e-Cigarette/Vaping Use Never Used 10/22/23 15:34 Thrive Assessment: Date of Thrive Assessment Date Thrive assessed 06/21/22 10/22/23 15:34 Const General: cooperative, comfortable and no acute distress Orientation/consciousness: patient oriented x3 HENMT Head: Yes normocephalic and Yes atraumatic Eyes General: appearance normal, both eyes and all related structures Pupils: Equal, round and reactive pupils present EOM: EOMs intact bilaterally Neck Neck: Yes supple and No lymphadenopathy Thyroid: Thyroid normal Lymphatic: no lymphadenopathy noted Resp Effort & Inspection: normal respiratory effort and able to speak in complete sentences Auscultation: clear to auscultation bilaterally Cardio Heart sounds: S1 normal heart sound present and S2 normal heart sound present GI Palpation (GI): Soft to palpation and nontender Auscultation: normal bowel sounds General: Yes no CVA tenderness Back/Spine/Pelvis Back: no CVA tenderness Skin General skin exam: elasticity normal and turgor normal Neuro General: patient oriented x3 and gait normal Cranial nerves: Yes Equal, round and reactive pupils present Speech: No Abnormal speech present Sensory Exam: No Sensory deficit (Neuro) Coordination: tandem gait normal and Romberg test negative Extrem General: Yes normal exam except as noted and No edema Assessment and Plan Assessment & Plan (1) Encounter for general adult medical examination with abnormal findings: Code(s): Z00.01 - Encounter for general adult medical examination with abnormal findings (2) Meralgia paraesthetica: Code(s): G57.10 - Meralgia paresthetica, unspecified lower limb Qualifiers: Laterality: left Qualified Code(s): G57.12 - Meralgia paresthetica, left lower limb (3) Environmental allergies: Code(s): Z91.09 - Other allergy status, other than to drugs and biological substances (4) Obesity due to excess calories: Code(s): E66.09 - Other obesity due to excess calories Qualifiers: Obesity classification: adult class 1 (BMI 30 - 34.9) Serious obesity comorbidity presence: without serious comorbidity Body mass index: BMI 32.0-32.9 Qualified Code(s): E66.09 - Other obesity due to excess calories; Z68.32 - Body mass index [BMI] 32.0-32.9, adult (5) Anxiety, generalized: Code(s): F41.1 - Generalized anxiety disorder (6) Elevated ferritin: Code(s): R79.89 - Other specified abnormal findings of blood chemistry Plan Patient is a 33-year-old female came in for physical exam Established with OBGYN Last set of lab reviewed Patient offer no new complaint today except burning and numbness left upper thigh area get worse off and on Gabapentin 300 mg is helping, I have also sent Lidoderm patches for the days when symptoms are worse. Last set of lab showed ferritin level has improved to almost normal Anxiety stable patient is on fluoxetine and buspirone. She is trying to lose weight as well by exercising more. Allergies stable Follow-up 3 months physical exam 1 year Medications: New lidocaine 5% (Lidoderm) leave on most painful area for up to 12 hrs 1 patch topical DAILY 30 ea 2RF Coding Level of Care Code Est Pt Level 3 (78597) Est Pt Prev Care 18-39y(85923) Diagnoses Encounter for general adult medical examination with abnormal findings Z00.01 Meralgia paresthetica of left side G57.12 Laterality: left Environmental allergies Z91.09 Class 1 obesity due to excess calories without serious comorbidity with body mass index (BMI) of 32.0 to 32.9 in adult E66.09; Z68.32 Obesity classification: adult class 1 (BMI 30 - 34.9) Serious obesity comorbidity presence: without serious comorbidity Body mass index: BMI 32.0-32.9 Anxiety, generalized F41.1 Elevated ferritin R79.89
== END 2023-10-22 15:57 | disposition home or self-care (01) ==
PROVIDERS: Visit Provider Internal Medicine
DX: Z00.00 Encounter for general adult medical examination without abnormal findings (principal); G57.12 Meralgia paresthetica, left lower limb; E66.09 Other obesity due to excess calories; Z68.32 Body mass index [BMI] 32.0-32.9, adult; Z91.09 Other allergy status, other than to drugs and biological substances; F41.1 Generalized anxiety disorder; R79.89 Other specified abnormal findings of blood chemistry
CPT/HCPCS: 99395

== ENCOUNTER 2024-01-20 08:33 | Outpatient (AMB) | payer OTHER, SELFPAY ==
--- NOTE | 2024-01-20 08:35 | MHC.PC.OV ---
Vital Signs 01/20/24 08:36 Height 5 ft 3 in Weight 196 lb 4 oz BMI 34.8 BP 120/74 Blood Pressure Location Rt brachial Position Sitting Pulse 93 Pulse Source Pulse Oximeter Pulse Oximetry (%) 98 Oxygen Delivery Method Room Air Intake Visit Reasons: 3 month follow up Allergies bee pollen Allergy (Intermediate, Verified 01/20/24 08:36) swelling itchy Medication List - Last Reconciled 01/20/24 by Hugo Gomez MD albuterol sulfate 90 mcg/actuation (ProAir HFA) 1 inh inhalation Q4-6H PRN buspirone 5 mg PO ONCE PRN 90 days cetirizine (Zyrtec) 10 mg PO DAILY PRN fluoxetine 10 mg PO DAILY 90 days gabapentin 300 mg PO BEDTIME 90 days glycopyrrolate 1 mg PO BID-TID PRN lidocaine 5% (Lidoderm) 1 patch topical DAILY norethindrone-ethin estradiol 1-35 mg-mcg (Nortrel) 1 tab PO DAILY Tobacco use date assessed: 01/20/24 Dental Screening Dental Screen Date: 01/20/24 Did you have a dental visit in the last 12 months?: Yes Did you have a dental problem in the last 6 months where you did not have access to dental care?: No Was dental information given to patient?: Patient has dentist HPI 3 month follow up HPI Details Patient is a 33-year-old female came in today for regular three-month follow-up appointment Patient is complaining of lack of libido, which has been happening for the past 6 months She does admit to having a lot on her mind, and is focused on her career In for the past 3 months she is also having irregularity of periods Patient is on control for years. She does have an OBGYN and has appointment coming up I would recommend to discuss this with OBGYN I see that she is due for labs, last set of lab was August Order placed burning and numbness left upper thigh area he is being treated with gabapentin Last set of lab showed ferritin level has improved to almost normal Anxiety stable patient is on fluoxetine and buspirone. Allergies stable [facility], [facility] Medical History Uterus didelphus Tonsillectomy planned Asthma COVID-19 long hauler Cough present for greater than 3 weeks Surgical History [place] teeth extracted Social History Housing: House Alcohol intake: current Alcohol intake frequency: holidays/special occasions only Patient Tobacco Use Status: Never used Tobacco e-Cigarette/Vaping Use: Never Used Second Hand Smoke Exposure: No Current occupational status: unemployed Cognitive needs: No Hearing needs: No Vision needs: No Female Reproductive History Menstrual Age of Menarche: 11 Questionnaire PHQ-9 Over the last 2 weeks, how often have you been bothered by any of the following problems? 1. Little interest or pleasure in doing things: several days 2. Feeling down, depressed, or hopeless: not at all 3. Trouble falling or staying asleep, or sleeping too much: not at all 4. Feeling tired or having little energy: several days 5. Poor appetite or overeating: several days 6. Feeling bad about yourself - or that you are a failure or have let yourself or your family down: not at all 7. Trouble concentrating on things, such as reading the newspaper or watching television: not at all 8. Moving or speaking so slowly that other people could have noticed. Or the opposite - being so fidgety or restless that you have been moving around a lot more than usual: not at all 9. Thoughts that you would be better off or of hurting yourself in some way: not at all Total score: 3 Depression Screening Interpretation: Negative Depression Screening Done: Yes 52904 - PHQ-9 Billing: Yes Source: Developed by Drs. Garfield Kimball, Ailin Corrales, Julio C Slaughter and colleagues, with an educational andi from [employer]. Thrive Questionnaire Date Thrive assessed: 01/20/24 I am a: Patient What is your living situation today?: I have a steady place to live Within the past 12 months, did the food you bought not last and you didn't have the money to get more?: Never true Within the past 12 months, did you worry whether your food would run out before you got money to buy more?: Never true Do you have trouble paying for medicines?: No Do you have trouble getting transportation to medical appointments?: No Do you have trouble paying your heating and electricity bill?: No Do you have trouble taking care of your child, family member or friend?: No Do you have trouble with day-to-day activities such as bathing, preparing meals, shopping, managing finances, etc.?: No Are you currently unemployed and looking for a job?: No Are you interested in more education?: No Please select the resources that you would like help with: Job search/training and None Currently or been in a relationship where the following occur: No concerns reported THRIVE Score: 0 AUDIT C Alcohol Use Questionnaire (AUDIT-C) 1. How often do you have a drink containing alcohol?: 2-4 times a month 2. How many drinks containing alcohol do you have on a typical day when you are drinking?: 3 or 4 3. How often do you have six or more drinks on one occasion?: Less than monthly Total Score: 4 Score Reviewed/Action Taken: Yes MILADYS-7 AMB Questionnaire MILADYS-7 Date MILADYS - 7 assessed: 01/20/24 Feeling nervous, anxious, or on edge: 1 = Several days Not being able to stop or control worryin = Not at all Worrying too much about different things: 0 = Not at all Trouble relaxin = Several days Being so restless that it is hard to sit still: 0 = Not at all Becoming easily annoyed or irritable: 1 = Several days Feeling afraid as if something awful might happen: 0 = Not at all Total MILADYS-7 score (0-4 normal; 5-9 mild; 10-14 moderate; 15-21 severe): 3 Source: Developed by Drs. Garfield Kimball, Ailin Corrales, Julio C Slaughter and colleagues, with an educational andi from [employer]. MILADYS-7 Assessment Billing MILADYS-7 Assessment Tool: MILADYS-7 Assessment 20016 Review of Systems Const Denies chills and Denies fever(s) ENT Denies epistaxis and Denies nasal discharge Card Denies chest pain Resp Denies chest congestion, Denies cough and Denies hemoptysis GI Denies diarrhea and Denies nausea Skin/Breast Denies rash Neuro Reports no additional complaints Psych Reports no additional complaints Endo Reports no additional complaints Physical exam (Primary Care) Vital Signs: Last Vital Signs Pulse 93 01/20/24 08:36 BP 120/74 01/20/24 08:36 Pulse Ox 98 01/20/24 08:36 Oxygen Delivery Method Room Air 01/20/24 08:36 BMI result Body Mass Index 34.8 Tobacco/Smoking Status: Tobacco use Status Tobacco use date assessed 01/20/24 01/20/24 08:39 Patient Tobacco Use Status Never used Tobacco 01/20/24 08:39 e-Cigarette/Vaping Use Never Used 01/20/24 08:39 PHQ-9: PHQ-9 Score PHQ-9: Total score 3 01/20/24 09:08 Depression Screening Interpretation: Negative Thrive Assessment: Date of Thrive Assessment Date Thrive assessed 01/20/24 01/20/24 08:39 Currently or been in a relationship where the following occur: No concerns reported Const General: cooperative, comfortable and no acute distress Orientation/consciousness: patient oriented x3 HENMT Head: Yes normocephalic Eyes General: appearance normal, both eyes and all related structures Neck Neck: Yes supple Resp Effort & Inspection: normal respiratory effort, no cough and no stridor Cardio Rhythm: regular rhythm Heart sounds: S1 normal heart sound present and S2 normal heart sound present Skin General skin exam: turgor normal Neuro General: patient oriented x3, tone normal and moves all extremities Extrem Right lower extremity: no edema Left lower extremity: no edema Assessment and Plan Assessment & Plan (1) Lack of libido: Code(s): F52.0 - Hypoactive sexual desire disorder (2) Meralgia paraesthetica: Code(s): G57.10 - Meralgia paresthetica, unspecified lower limb Qualifiers: Laterality: left Qualified Code(s): G57.12 - Meralgia paresthetica, left lower limb (3) Environmental allergies: Code(s): Z91.09 - Other allergy status, other than to drugs and biological substances (4) Obesity due to excess calories: Code(s): E66.09 - Other obesity due to excess calories Qualifiers: Body mass index: BMI 32.0-32.9 Obesity classification: adult class 1 (BMI 30 - 34.9) Serious obesity comorbidity presence: without serious comorbidity Qualified Code(s): E66.09 - Other obesity due to excess calories; Z68.32 - Body mass index [BMI] 32.0-32.9, adult (5) Anxiety, generalized: Code(s): F41.1 - Generalized anxiety disorder (6) Elevated ferritin: Comment: Stable Code(s): R79.89 - Other specified abnormal findings of blood chemistry Plan Patient is a 33-year-old female came in today for regular three-month follow-up appointment Patient is complaining of lack of libido, which has been happening for the past 6 months She does admit to having a lot on her mind, and is focused on her career In for the past 3 months she is also having irregularity of periods Patient is on control for years. She does have an OBGYN and has appointment coming up I would recommend to discuss this with OBGYN I see that she is due for labs, last set of lab was August Order placed burning and numbness left upper thigh area he is being treated with gabapentin Last set of lab showed ferritin level has improved to almost normal Anxiety stable patient is on fluoxetine and buspirone. Allergies stable Orders: Orders Complete Blood Count Auto Diff Today E66.09 - Other obesity due to excess calories, F41.1 - Generalized anxiety disorder, F52.0 - Hypoactive sexual desire disorder, G57.12 - Meralgia paresthetica, left lower limb, R79.89 - Other specified abnormal findings of blood chemistry, Z68.32 - Body mass index [BMI] 32.0-32.9, adult, Z91.09 - Other allergy status, other than to drugs and biological substances LDL Cholesterol Direct Today E66.09 - Other obesity due to excess calories, F41.1 - Generalized anxiety disorder, F52.0 - Hypoactive sexual desire disorder, G57.12 - Meralgia paresthetica, left lower limb, R79.89 - Other specified abnormal findings of blood chemistry, Z68.32 - Body mass index [BMI] 32.0-32.9, adult, Z91.09 - Other allergy status, other than to drugs and biological substances TSH reflex Free T4 Today E66.09 - Other obesity due to excess calories, F41.1 - Generalized anxiety disorder, F52.0 - Hypoactive sexual desire disorder, G57.12 - Meralgia paresthetica, left lower limb, R79.89 - Other specified abnormal findings of blood chemistry, Z68.32 - Body mass index [BMI] 32.0-32.9, adult, Z91.09 - Other allergy status, other than to drugs and biological substances Comprehensive Met. Panel Today E66.09 - Other obesity due to excess calories, F41.1 - Generalized anxiety disorder, F52.0 - Hypoactive sexual desire disorder, G57.12 - Meralgia paresthetica, left lower limb, R79.89 - Other specified abnormal findings of blood chemistry, Z68.32 - Body mass index [BMI] 32.0-32.9, adult, Z91.09 - Other allergy status, other than to drugs and biological substances Vitamin D 25-OH (D2 and D3) Today E66.09 - Other obesity due to excess calories, F41.1 - Generalized anxiety disorder, F52.0 - Hypoactive sexual desire disorder, G57.12 - Meralgia paresthetica, left lower limb, R79.89 - Other specified abnormal findings of blood chemistry, Z68.32 - Body mass index [BMI] 32.0-32.9, adult, Z91.09 - Other allergy status, other than to drugs and biological substances Testosterone, Total Today E66.09 - Other obesity due to excess calories, F41.1 - Generalized anxiety disorder, F52.0 - Hypoactive sexual desire disorder, G57.12 - Meralgia paresthetica, left lower limb, R79.89 - Other specified abnormal findings of blood chemistry, Z68.32 - Body mass index [BMI] 32.0-32.9, adult, Z91.09 - Other allergy status, other than to drugs and biological substances Ferritin Today R79.89 - Other specified abnormal findings of blood chemistry Coding Level of Care Code Est Pt Level 4 (95607) Diagnoses Lack of libido F52.0 Meralgia paresthetica of left side G57.12 Laterality: left Environmental allergies Z91.09 Class 1 obesity due to excess calories without serious comorbidity with body mass index (BMI) of 32.0 to 32.9 in adult E66.09; Z68.32 Body mass index: BMI 32.0-32.9 Obesity classification: adult class 1 (BMI 30 - 34.9) Serious obesity comorbidity presence: without serious comorbidity Anxiety, generalized F41.1 Elevated ferritin R79.89 Additional Codes MILADYS-7 Assessment Billing - MILADYS-7 Assessment Tool: MILADYS-7 Assessment 10404 ([id number])
[2024-01-20 08:36] VITALS: BP 120/74; PULSE 93; O2SAT 98; BMI 34.8
== END 2024-01-20 08:57 | disposition home or self-care (01) ==
PROVIDERS: PCP Internal Medicine; Visit Provider Internal Medicine
DX: G57.12 Meralgia paresthetica, left lower limb (principal); F52.0 Hypoactive sexual desire disorder; E66.09 Other obesity due to excess calories; Z68.32 Body mass index [BMI] 32.0-32.9, adult; Z91.09 Other allergy status, other than to drugs and biological substances; F41.1 Generalized anxiety disorder; R79.89 Other specified abnormal findings of blood chemistry
CPT/HCPCS: 99214

== ENCOUNTER 2024-03-16 14:58 | Outpatient (AMB) | payer OTHER, SELFPAY ==
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
[2024-03-16 15:19] VITALS: BP 110/70; BMI 35.2
== END 2024-03-16 16:19 | disposition home or self-care (01) ==
LOC: HO.HWSM 14:59
PROVIDERS: PCP Internal Medicine; Visit Provider Advanced Practice Midwife
DX: Z01.419 Encounter for gynecological examination (general) (routine) without abnormal findings (principal); F52.0 Hypoactive sexual desire disorder; Q51.28 Other and unspecified doubling of uterus; Z20.2 Contact with and (suspected) exposure to infections with a predominantly sexual mode of transmission; Z30.09 Encounter for other general counseling and advice on contraception; E66.9 Obesity, unspecified
CPT/HCPCS: 99395

== ENCOUNTER 2024-03-16 14:58 | Outpatient (REF) | payer OTHER, SELFPAY ==
[2024-03-17 11:38] LABS: Bacterial Vaginosis PCR NEGATIVE (Negative); Candida Group PCR NOT DETECTED (Not Detect); Candida glab krusei PCR NOT DETECTED (Not Detect); Trichomonas vaginalis PCR NOT DETECTED (Not Detect)
[2024-03-17 12:08] LABS: CT PCR NOT DETECTED (Not Detect.); NG PCR NOT DETECTED (Not Detect.)
== END 2024-03-16 14:59 | disposition home or self-care (01) ==
LOC: HO.LAB 14:58
PROVIDERS: PCP Internal Medicine; Visit Provider Advanced Practice Midwife
DX: Z01.419 Encounter for gynecological examination (general) (routine) without abnormal findings (principal); N89.8 Other specified noninflammatory disorders of vagina; Z20.2 Contact with and (suspected) exposure to infections with a predominantly sexual mode of transmission
CPT/HCPCS: 0352U; 87491; 87591; 99395

== ENCOUNTER 2024-04-06 11:35 | Outpatient (REF) | payer OTHER, SELFPAY ==
[2024-04-06 13:11] LABS: MANUAL DIFF FLAG NO
[2024-04-06 13:16] LABS: Basophils Percent Auto 0.4 % (0-2); Eosinophils Absolute Auto 0.1 X10*3/uL (0.0-0.4); Imm Gran Abs Auto 0.02 X10*3/uL (0.00-0.03); Imm Gran Pct Auto 0.3 % (0.0-0.4); Lymphocytes Absolute Auto 2.1 X10*3/uL (1.2-4.9); Lymphocytes Percent Auto 29.7 % (20-40); Mean Corpuscular HGB Conc 32.5 g/dl (31.0-35.0); Mean Corpuscular Hemoglobin 28.3 pg (27.0-33.0); Mean Corpuscular Volume 87.1 fL (80.0-98.0); Monocytes Absolute Auto 0.5 X10*3/uL (0.1-1.2); Monocytes Percent Auto 7.6 % (2-11); Neutrophils Absolute Auto 4.3 x10*3/uL (2.0-8.3); Platelet Count 304 X10*3/uL (160-400); Red Blood Count 4.59 X10*6/uL (4.20-5.50); Red Cell Distribution Width 13.2 % (11.0-16.0)
[2024-04-06 13:48] LABS: Alanine Aminotransferase 19 U/L (0-31); Albumin Level 4.1 g/dL (3.5-5.0); Alkaline Phosphatase 55 U/L (39-117); Anion Gap 12 (12-20); Aspartate Amino Transferase 23 U/L (5-31); Bilirubin Total 0.5 mg/dL (0.0-1.0); Blood Urea Nitrogen 15 mg/dL (9-16); Carbon Dioxide 20 mmol/L (22-29); Chloride 106 mmol/L (96-108); Estimated Glomerular Filt Rate > 60; Glucose Random 92 mg/dL (60-115); Sodium 134 mmol/L (135-145); Total Protein 7.3 g/dL (6.5-8.0)
[2024-04-06 13:57] LABS: Ferritin 177 ng/mL (10-122); TSH reflex Free T4 2.09 uIU/mL (0.32-4.0)
[2024-04-09 15:23] LABS: LDL Cholesterol Direct 123 mg/dL (<100)
[2024-04-11 15:39] LABS: Testosterone, Total 24 ng/dL (2-45)
[2024-04-11 16:48] LABS: Vitamin D 25-OH, D2 <4 ng/mL; Vitamin D 25-OH, D3 30 ng/mL; Vitamin D 25-OH, Total 30 ng/mL (30-100)
== END 2024-04-06 11:36 | disposition home or self-care (01) ==
LOC: HO.HMGCLDS 11:35
PROVIDERS: PCP Internal Medicine; Visit Provider Internal Medicine
DX: F52.0 Hypoactive sexual desire disorder (principal); R79.89 Other specified abnormal findings of blood chemistry; G57.12 Meralgia paresthetica, left lower limb; Z91.09 Other allergy status, other than to drugs and biological substances; E66.09 Other obesity due to excess calories; Z68.32 Body mass index [BMI] 32.0-32.9, adult; F41.1 Generalized anxiety disorder
CPT/HCPCS: 36415; 80053; 82306; 82728; 83721; 84403; 84443; 85025

== ENCOUNTER 2024-04-30 08:54 | Outpatient (REF) | payer OTHER, SELFPAY | END 2024-04-30 08:55 | disposition home or self-care (01) | LOC: HO.HMGCLDS 08:54 | PROVIDERS: PCP Internal Medicine; Visit Provider Internal Medicine | DX: R79.89 Other specified abnormal findings of blood chemistry (principal); G57.12 Meralgia paresthetica, left lower limb; F41.1 Generalized anxiety disorder; R53.83 Other fatigue; E66.9 Obesity, unspecified; Z68.34 Body mass index [BMI] 34.0-34.9, adult; Z91.09 Other allergy status, other than to drugs and biological substances; Z79.899 Other long term (current) drug therapy | CPT/HCPCS: 36415; 81256; 99212 ==

== ENCOUNTER 2024-04-30 08:54 | Outpatient (AMB) | payer OTHER, SELFPAY ==
[2024-04-30 08:56] VITALS: BP 122/78; PULSE 94; O2SAT 98; BMI 34.6
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
== END 2024-04-30 10:47 | disposition home or self-care (01) ==
PROVIDERS: PCP Internal Medicine; Visit Provider Internal Medicine
DX: G57.12 Meralgia paresthetica, left lower limb (principal); E66.9 Obesity, unspecified; Z68.34 Body mass index [BMI] 34.0-34.9, adult; R79.89 Other specified abnormal findings of blood chemistry; F41.1 Generalized anxiety disorder; Z91.09 Other allergy status, other than to drugs and biological substances; R53.83 Other fatigue

== ENCOUNTER 2024-05-20 08:21 | Outpatient (AMB) | payer OTHER, SELFPAY ==
--- NOTE | 2024-05-20 08:27 | MHC.PC.OV ---
Intake Visit Reasons: Discuss Results Allergies bee pollen Allergy (Intermediate, Verified 05/20/24 08:27) swelling itchy Medication List - Last Reconciled 05/20/24 by Hugo Gomez MD albuterol sulfate 90 mcg/actuation (ProAir HFA) 1 inh inhalation Q4-6H PRN buspirone 5 mg PO ONCE PRN 90 days cetirizine (Zyrtec) 10 mg PO DAILY PRN desog-e.estradiol/e.estradiol 0.15-0.02 mgx21 /0.01 mg x 5 1 tab PO DAILY fluoxetine 10 mg PO DAILY 90 days gabapentin 300 mg PO BEDTIME 90 days glycopyrrolate 1 mg PO BID-TID PRN lidocaine 5% (Lidoderm) 1 patch topical DAILY Tobacco use date assessed: 05/20/24 Dental Screening Dental Screen Date: 05/20/24 Did you have a dental visit in the last 12 months?: Yes Did you have a dental problem in the last 6 months where you did not have access to dental care?: No Was dental information given to patient?: Patient has dentist HPI Discuss Results HPI Details Patient is a 33-year-old female this is a telemedicine visit Patient has iron has been coming at higher than normal value In August of 2023 it was 124 And then in March it was 177 We did the hemochromatosis gene test It came back positive for 1 gene Report was discussed with the patient All questions answered We will continue to monitor the iron level. [facility] Medical History Uterus didelphus Tonsillectomy planned Asthma COVID-19 long hauler Cough present for greater than 3 weeks Surgical History [place] teeth extracted Social History Housing: House Alcohol intake: current Alcohol intake frequency: holidays/special occasions only Patient Tobacco Use Status: Never used Tobacco e-Cigarette/Vaping Use: Never Used Second Hand Smoke Exposure: No Current occupational status: unemployed Cognitive needs: No Hearing needs: No Vision needs: No Female Reproductive History Menstrual Age of Menarche: 11 Questionnaire PHQ-9 Over the last 2 weeks, how often have you been bothered by any of the following problems? 1. Little interest or pleasure in doing things: several days 2. Feeling down, depressed, or hopeless: not at all 3. Trouble falling or staying asleep, or sleeping too much: not at all 4. Feeling tired or having little energy: several days 5. Poor appetite or overeating: several days 6. Feeling bad about yourself - or that you are a failure or have let yourself or your family down: not at all 7. Trouble concentrating on things, such as reading the newspaper or watching television: not at all 8. Moving or speaking so slowly that other people could have noticed. Or the opposite - being so fidgety or restless that you have been moving around a lot more than usual: not at all 9. Thoughts that you would be better off or of hurting yourself in some way: not at all Total score: 3 Depression Screening Interpretation: Negative Depression Screening Done: Yes [id number] - PHQ-9 Billing: Yes Source: Developed by Drs. Garfield Kimball, Ailin Corrales, Julio C Slaughter and colleagues, with an educational andi from [employer]. Thrive Questionnaire Date Thrive assessed: 05/20/24 I am a: Patient What is your living situation today?: I have a steady place to live Within the past 12 months, did the food you bought not last and you didn't have the money to get more?: Never true Within the past 12 months, did you worry whether your food would run out before you got money to buy more?: Never true Do you have trouble paying for medicines?: No Do you have trouble getting transportation to medical appointments?: No Do you have trouble paying your heating and electricity bill?: No Do you have trouble taking care of your child, family member or friend?: No Do you have trouble with day-to-day activities such as bathing, preparing meals, shopping, managing finances, etc.?: No Are you currently unemployed and looking for a job?: No Are you interested in more education?: No Currently or been in a relationship where the following occur: No concerns reported THRIVE Score: 0 AUDIT C Alcohol Use Questionnaire (AUDIT-C) 1. How often do you have a drink containing alcohol?: 2-4 times a month 2. How many drinks containing alcohol do you have on a typical day when you are drinking?: 3 or 4 3. How often do you have six or more drinks on one occasion?: Less than monthly Total Score: 4 Score Reviewed/Action Taken: Yes MLIADYS-7 AMB Questionnaire MILADYS-7 Date MILADYS - 7 assessed: 05/20/24 Feeling nervous, anxious, or on edge: 0 = Not at all Not being able to stop or control worryin = Not at all Worrying too much about different things: 0 = Not at all Trouble relaxin = Not at all Being so restless that it is hard to sit still: 0 = Not at all Becoming easily annoyed or irritable: 0 = Not at all Feeling afraid as if something awful might happen: 0 = Not at all Total MILADYS-7 score (0-4 normal; 5-9 mild; 10-14 moderate; 15-21 severe): 0 Source: Developed by Drs. Garfield Kimball, Ailin Corrales, Julio C Slaughter and colleagues, with an educational andi from [employer]. MILADYS-7 Assessment Billing MILADYS-7 Assessment Tool: MILADYS-7 Assessment 48250 Review of Systems Const Denies chills and Denies fever(s) ENT Denies epistaxis and Denies nasal discharge Card Denies chest pain Resp Denies chest congestion, Denies cough and Denies hemoptysis GI Denies diarrhea and Denies nausea Skin/Breast Denies rash Neuro Reports no additional complaints Psych Reports no additional complaints Endo Reports no additional complaints Physical exam (Primary Care) Tobacco/Smoking Status: Tobacco use Status Tobacco use date assessed 05/20/24 05/20/24 08:28 Patient Tobacco Use Status Never used Tobacco 05/20/24 08:28 e-Cigarette/Vaping Use Never Used 05/20/24 08:28 PHQ-9: PHQ-9 Score PHQ-9: Total score 3 05/20/24 09:06 Depression Screening Interpretation: Negative Thrive Assessment: Date of Thrive Assessment Date Thrive assessed 05/20/24 05/20/24 08:28 Currently or been in a relationship where the following occur: No concerns reported Telehealth Telehealth Telehealth Platform: [facility] Location of provider rendering services: practice address Location of patient: address on file Patient Identification confirmed using: Name, : Yes Telehealth method: voice only Patient verbally consented to treatment: Yes Patient verbally consented to billing insurance company: Yes Patient informed of any privacy concerns related to visit: Yes Minutes spent on Phone/Video with Pt.: 13 Coding Level of Care Code Tele Est Pt Level 3 (42428) Diagnoses 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 Additional Codes MILADYS-7 Assessment Billing - MILADYS-7 Assessment Tool: MILADYS-7 Assessment 55781 ([id number]) PHQ-9 - 18267 - PHQ-9 Billing: Yes ([id number]) Assessment & Plan Assessment & Plan (1) Hemochromatosis associated with compound heterozygous mutation in HFE gene: Code(s): E83.110 - Hereditary hemochromatosis Category: Medical Plan Patient is a 33-year-old female this is a telemedicine visit Patient has iron has been coming at higher than normal value In August of 2023 it was 124 And then in March it was 177 We did the hemochromatosis gene test It came back positive for 1 gene Report was discussed with the patient All questions answered We will continue to monitor the iron level.
== END 2024-05-20 08:58 | disposition home or self-care (01) ==
LOC: HO.HMCC 08:21
PROVIDERS: PCP Internal Medicine; Visit Provider Internal Medicine
DX: E83.110 Hereditary hemochromatosis (principal)

== ENCOUNTER → 2024-05-20 08:21 | Outpatient (BNVA) | payer OTHER, SELFPAY | PROVIDERS: PCP Internal Medicine; Visit Provider Internal Medicine | DX: E83.110 Hereditary hemochromatosis (principal) | CPT/HCPCS: 96127 ==

== ENCOUNTER 2024-07-28 15:20 | Outpatient (AMB) | payer OTHER, SELFPAY ==
[2024-07-28 15:24] VITALS: BP 112/76; PULSE 106; O2SAT 98; BMI 35.3
--- NOTE | 2024-07-28 15:24 | MHC.PC.OV ---
Vital Signs 07/28/24 15:24 Height 5 ft 3 in Weight 199 lb 4 oz BMI 35.3 BP 112/76 Blood Pressure Location Rt brachial Position Sitting Pulse 106 H Pulse Source Pulse Oximeter Pulse Oximetry (%) 98 Oxygen Delivery Method Room Air Intake Visit Reasons: 3m follow up Allergies bee pollen Allergy (Intermediate, Verified 05/20/24 08:27) swelling itchy Medication List - Last Reconciled 07/28/24 by Hugo Gomez MD albuterol sulfate 90 mcg/actuation (ProAir HFA) 1 inh inhalation Q4-6H PRN buspirone 5 mg PO ONCE PRN 90 days cetirizine (Zyrtec) 10 mg PO DAILY PRN desog-e.estradiol/e.estradiol 0.15-0.02 mgx21 /0.01 mg x 5 1 tab PO DAILY fluoxetine 10 mg PO DAILY 90 days gabapentin 300 mg PO BEDTIME 90 days glycopyrrolate 1 mg PO BID-TID PRN lidocaine 5% (Lidoderm) 1 patch topical DAILY Tobacco use date assessed: 05/20/24 Dental Screening Dental Screen Date: 05/20/24 HPI 3m follow up HPI Details History - The patient is a 33 year old female presenting with frequent urination and concern regarding a possible urinary tract infection, although there is no infection currently present. - Reports frequent urination, previously associated with red blood cells found in urine. No active urinary tract infection was identified. We did a urinalysis there is slight blood as patient is having her menstrual cycle but there is no signs of infection - last time checked ferritin level was in 170s patient is hemochromatosis gene positive Problem List - Possible Hemochromatosis - Prediabetes (family history) - Thyroid dysfunction (family history) -meralgia paresthetica- obesity with BMI of 34.6 patient is aware trying to lose weight - allergies stable - anxiety is stable with fluoxetine and buspirone Patient Instructions - Continue buspirone as prescribed, can be taken up to three times a day for anxiety. - Continue with fluoxetine and gabapentin as previously prescribed. - Take Zyrtec, especially with the onset of spring, to manage allergies. - Plan for upcoming appointment in November for a physical examination and laboratory tests, including an evaluation of iron levels. - Ensure fasting for laboratory tests if appointment allows. - Monitor symptoms and report any concerning changes, especially regarding urination or potential signs of infection. Review of Systems - General: No fever no chills - Neurological: No headaches no dizziness - Ear nose throat: No sore throat no hearing difficulty no ear pain - Cardiovascular: No syncope, no chest pain, no palpitations - Gastrointestinal: No nausea vomiting or diarrhea - Endocrine: No polyuria polydipsia no heat intolerance - Genitourinary: No dysuria , no blood in urine Physical Exam General: No acute distress HEENT: No acute findings Neck: Supple Respiratory system: Able to talk in full sentences, no audible wheeze cardiovascular: S1-S2 regular in rate and rhythm Gastrointestinal: No nausea or vomiting Extremities: No swelling or pain [employer] COATING: Alert awake oriented x3 motor sensory intact Skin: Normal turgor, patient reports feeling warm, possibly due to hot flashes PFSH Medical History Uterus didelphus Tonsillectomy planned Asthma COVID-19 long hauler Cough present for greater than 3 weeks Surgical History [place] teeth extracted Social History Housing: House Alcohol intake: current Alcohol intake frequency: holidays/special occasions only Patient Tobacco Use Status: Never used Tobacco e-Cigarette/Vaping Use: Never Used Second Hand Smoke Exposure: No Current occupational status: unemployed Cognitive needs: No Hearing needs: No Vision needs: No Female Reproductive History Menstrual Age of Menarche: 11 Questionnaire PHQ-9 Over the last 2 weeks, how often have you been bothered by any of the following problems? 1. Little interest or pleasure in doing things: not at all 2. Feeling down, depressed, or hopeless: not at all 3. Trouble falling or staying asleep, or sleeping too much: not at all 4. Feeling tired or having little energy: several days 5. Poor appetite or overeating: several days 6. Feeling bad about yourself - or that you are a failure or have let yourself or your family down: not at all 7. Trouble concentrating on things, such as reading the newspaper or watching television: not at all 8. Moving or speaking so slowly that other people could have noticed. Or the opposite - being so fidgety or restless that you have been moving around a lot more than usual: not at all 9. Thoughts that you would be better off or of hurting yourself in some way: not at all Total score: 2 Source: Developed by Drs. Garfield Kimball, Ailin Corrales, Julio C Slaughter and colleagues, with an educational andi from [employer]. Thrive Questionnaire Date Thrive assessed: 07/28/24 I am a: Patient What is your living situation today?: I have a steady place to live Within the past 12 months, did the food you bought not last and you didn't have the money to get more?: Never true Within the past 12 months, did you worry whether your food would run out before you got money to buy more?: Never true Do you have trouble paying for medicines?: No Do you have trouble getting transportation to medical appointments?: No Do you have trouble paying your heating and electricity bill?: No Do you have trouble taking care of your child, family member or friend?: No Do you have trouble with day-to-day activities such as bathing, preparing meals, shopping, managing finances, etc.?: No Are you currently unemployed and looking for a job?: No Are you interested in more education?: No Please select the resources that you would like help with: None Currently or been in a relationship where the following occur: No concerns reported THRIVE Score: 0 AUDIT C Alcohol Use Questionnaire (AUDIT-C) 1. How often do you have a drink containing alcohol?: 2-4 times a month 2. How many drinks containing alcohol do you have on a typical day when you are drinking?: 3 or 4 3. How often do you have six or more drinks on one occasion?: Never Total Score: 3 MILADYS-7 AMB Questionnaire MILADYS-7 Date MILADYS - 7 assessed: 05/20/24 Feeling nervous, anxious, or on edge: 1 = Several days Not being able to stop or control worryin = Not at all Worrying too much about different things: 0 = Not at all Trouble relaxin = Not at all Being so restless that it is hard to sit still: 0 = Not at all Becoming easily annoyed or irritable: 1 = Several days Feeling afraid as if something awful might happen: 0 = Not at all Total MILADYS-7 score (0-4 normal; 5-9 mild; 10-14 moderate; 15-21 severe): 2 Source: Developed by Drs. Garfield Kimball, Ailin Corrales, Julio C Slaughter and colleagues, with an educational andi from [employer]. Physical exam (Primary Care) Vital Signs: Last Vital Signs Pulse 106 H 07/28/24 15:24 BP 112/76 07/28/24 15:24 Pulse Ox 98 07/28/24 15:24 Oxygen Delivery Method Room Air 07/28/24 15:24 BMI result Body Mass Index 35.3 Tobacco/Smoking Status: Tobacco use Status Tobacco use date assessed 05/20/24 07/28/24 15:27 Patient Tobacco Use Status Never used Tobacco 07/28/24 15:27 e-Cigarette/Vaping Use Never Used 07/28/24 15:27 PHQ-9: PHQ-9 Score PHQ-9: Total score 2 07/28/24 15:39 Thrive Assessment: Date of Thrive Assessment Date Thrive assessed 07/28/24 07/28/24 15:27 Currently or been in a relationship where the following occur: No concerns reported Results AMB Urinalysis, Automated UA Leukoctes 0 Rakesh/uL Last Edit by Artemio Squires CMA on 07/28/24 15:38 UA Nitrite Negative Last Edit by Artemio Squires CMA on 07/28/24 15:38 UA Urobilinogen 0.2 mg/dL Last Edit by Artemio Squires CMA on 07/28/24 15:38 UA Protein 0 mg/dL Last Edit by Artemio Squires CMA on 07/28/24 15:38 UA pH 6.0 Last Edit by Artemio Squires CMA on 07/28/24 15:38 UA Blood 10 Govind/uL Last Edit by Artemio Squires CMA on 07/28/24 15:38 UA Specific Bob White 1.030 Last Edit by Artemio Squires CMA on 07/28/24 15:38 UA Ketone Negative Last Edit by Artemio Squires CMA on 07/28/24 15:38 UA Bilirubin 0 mg/dL Last Edit by Artemoi Squires CMA on 07/28/24 15:38 UA Glucose 0 mg/dL Last Edit by Artemio Squires CMA on 07/28/24 15:38 Results Reviewed Results Reviewed: Laboratory Last Values Urine pH (Auto) 6.0 07/28/24 15:37 Specific Bob White (Auto) 1.030 07/28/24 15:37 Urine Protein (Auto) 0 mg/dL 07/28/24 15:37 Glucose (UA)(Auto) 0 mg/dL 07/28/24 15:37 Urine Ketones (Auto) Negative 07/28/24 15:37 Urine Blood (Auto) 10 Govind/uL 07/28/24 15:37 Urine Nitrite (Auto) Negative 07/28/24 15:37 Urine Bilirubin (Auto) 0 mg/dL 07/28/24 15:37 Urine Urobilinogen (Auto) 0.2 mg/dL 07/28/24 15:37 Leukocyte Esterase (Auto) 0 Rakesh/uL 07/28/24 15:37 Coding Level of Care Code Est Pt Level 4 (38860) Diagnoses 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 Obesity (BMI 35.0-39.9 without comorbidity) E66.9 Elevated ferritin R79.89 Lipid disorder E78.9 Meralgia paresthetica of left side G57.12 Laterality: left Environmental allergies Z91.09 Anxiety, generalized F41.1 Assessment & Plan Assessment & Plan (1) Hemochromatosis associated with compound heterozygous mutation in HFE gene: Code(s): E83.110 - Hereditary hemochromatosis Category: Medical (2) Obesity (BMI 35.0-39.9 without comorbidity): Code(s): E66.9 - Obesity, unspecified Category: Medical (3) Elevated ferritin: Comment: Stable Code(s): R79.89 - Other specified abnormal findings of blood chemistry Category: Medical (4) Lipid disorder: Code(s): E78.9 - Disorder of lipoprotein metabolism, unspecified Category: Medical (5) Meralgia paraesthetica: Code(s): G57.10 - Meralgia paresthetica, unspecified lower limb Category: Medical Qualifiers: Laterality: left Qualified Code(s): G57.12 - Meralgia paresthetica, left lower limb (6) Environmental allergies: Code(s): Z91.09 - Other allergy status, other than to drugs and biological substances Category: Medical (7) Anxiety, generalized: Code(s): F41.1 - Generalized anxiety disorder Category: Medical Plan History - The patient is a 33 year old female presenting with frequent urination and concern regarding a possible urinary tract infection, although there is no infection currently present. - Reports frequent urination, previously associated with red blood cells found in urine. No active urinary tract infection was identified. We did a urinalysis there is slight blood as patient is having her menstrual cycle but there is no signs of infection - last time checked ferritin level was in 170s patient is hemochromatosis gene positive Problem List - Possible Hemochromatosis - Prediabetes (family history) - Thyroid dysfunction (family history) -meralgia paresthetica- obesity with BMI of 34.6 patient is aware trying to lose weight - allergies stable - anxiety is stable with fluoxetine and buspirone Patient Instructions - Continue buspirone as prescribed, can be taken up to three times a day for anxiety. - Continue with fluoxetine and gabapentin as previously prescribed. - Take Zyrtec, especially with the onset of spring, to manage allergies. - Plan for upcoming appointment in November for a physical examination and laboratory tests, including an evaluation of iron levels. - Ensure fasting for laboratory tests if appointment allows. - Monitor symptoms and report any concerning changes, especially regarding urination or potential signs of infection. Orders: Orders Comprehensive [place]. Panel Fast Today E66.9 - Obesity, unspecified, E78.9 - Disorder of lipoprotein metabolism, unspecified, E83.110 - Hereditary hemochromatosis, F41.1 - Generalized anxiety disorder, G57.12 - Meralgia paresthetica, left lower limb, R79.89 - Other specified abnormal findings of blood chemistry, Z91.09 - Other allergy status, other than to drugs and biological substances Lipid Panel Today E66.9 - Obesity, unspecified, E78.9 - Disorder of lipoprotein metabolism, unspecified, E83.110 - Hereditary hemochromatosis, F41.1 - Generalized anxiety disorder, G57.12 - Meralgia paresthetica, left lower limb, R79.89 - Other specified abnormal findings of blood chemistry, Z91.09 - Other allergy status, other than to drugs and biological substances TSH reflex Free T4 Today E66.9 - Obesity, unspecified, E78.9 - Disorder of lipoprotein metabolism, unspecified, E83.110 - Hereditary hemochromatosis, F41.1 - Generalized anxiety disorder, G57.12 - Meralgia paresthetica, left lower limb, R79.89 - Other specified abnormal findings of blood chemistry, Z91.09 - Other allergy status, other than to drugs and biological substances AMB Urinalysis Automated Today Z13.9 - Encounter for screening, unspecified Complete Blood Count Auto Diff Today E66.9 - Obesity, unspecified, E78.9 - Disorder of lipoprotein metabolism, unspecified, E83.110 - Hereditary hemochromatosis, F41.1 - Generalized anxiety disorder, G57.12 - Meralgia paresthetica, left lower limb, R79.89 - Other specified abnormal findings of blood chemistry, Z91.09 - Other allergy status, other than to drugs and biological substances Ferritin Today E66.9 - Obesity, unspecified, E78.9 - Disorder of lipoprotein metabolism, unspecified, E83.110 - Hereditary hemochromatosis, F41.1 - Generalized anxiety disorder, G57.12 - Meralgia paresthetica, left lower limb, R79.89 - Other specified abnormal findings of blood chemistry, Z91.09 - Other allergy status, other than to drugs and biological substances
== END 2024-07-28 15:40 | disposition home or self-care (01) ==
LOC: HO.HMCC 15:21
PROVIDERS: PCP Internal Medicine; Visit Provider Internal Medicine
DX: E83.110 Hereditary hemochromatosis (principal); E66.9 Obesity, unspecified; R35.0 Frequency of micturition; Z68.35 Body mass index [BMI] 35.0-35.9, adult; R79.89 Other specified abnormal findings of blood chemistry; E78.9 Disorder of lipoprotein metabolism, unspecified; G57.12 Meralgia paresthetica, left lower limb; Z91.09 Other allergy status, other than to drugs and biological substances; F41.1 Generalized anxiety disorder

== ENCOUNTER → 2024-07-28 15:20 | Outpatient (BNVA) | payer OTHER, SELFPAY | PROVIDERS: PCP Internal Medicine; Visit Provider Internal Medicine | DX: E83.110 Hereditary hemochromatosis (principal); E66.9 Obesity, unspecified; R79.89 Other specified abnormal findings of blood chemistry; E78.9 Disorder of lipoprotein metabolism, unspecified; G57.12 Meralgia paresthetica, left lower limb; F41.1 Generalized anxiety disorder; Z91.09 Other allergy status, other than to drugs and biological substances | CPT/HCPCS: 81003; 99212 ==

== ENCOUNTER 2024-11-09 15:18 | Outpatient (AMB) | payer OTHER, SELFPAY ==
[2024-11-09 15:30] VITALS: BP 126/88; PULSE 99; TEMP 37.3; O2SAT 99; BMI 34.6
--- NOTE | 2024-11-09 15:30 | A.OFFPC_ITS ---
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 Is last menstrual period known: Yes Post menopausal: No Patient : No Allergies bee pollen Allergy (Intermediate, Verified 11/09/24 15:34) swelling itchy Medication List - Last Reconciled 11/09/24 by Hugo Gomez MD albuterol sulfate 90 mcg/actuation (ProAir HFA) 1 inh inhalation Q4-6H PRN buspirone 5 mg PO ONCE PRN 90 days cetirizine (Zyrtec) 10 mg PO DAILY PRN desog-e.estradiol/e.estradiol 0.15-0.02 mgx21 /0.01 mg x 5 1 tab PO DAILY fluoxetine 10 mg PO DAILY 90 days gabapentin 300 mg PO BEDTIME 90 days glycopyrrolate 1 mg PO BID-TID PRN lidocaine 5% (Lidoderm) 1 patch topical DAILY Tobacco use date assessed: 11/09/24 Dental Screening Dental Screen Date: 05/20/24 Did you have a dental visit in the last 12 months?: Yes Did you have a dental problem in the last 6 months where you did not have access to dental care?: No Was dental information given to patient?: Patient has dentist HPI Annual Physical HPI Details Physical exam - The patient is a 34-year-old female pr esenting with anxiety and sciatica. - Anxiety: The patient reports fluctuati ng anxiety levels, managed with fluoxetine 10 mg and buspirone 5 mg as needed. - She sees a therapist twice a month, wh ich helps manage her anxiety. - She has tried increasing fluoxetine to 20 mg but experienced numbness, leading her to revert to the lower dose. - Sciatica: The patient reports left-yessi ed sciatica for the past three months, with symptoms exacerbated by certain movements. - She has been trying stretching exercis es, massages, and home care attendant without significant relief. - The straight leg raise test is positiv e, indicating nerve involvement. - She has taken ibuprofen some relief - Allergic rhinitis: Managed with Zyrtec . Health Maintenance - Scheduled DEMOLITION SPECIALIST visit for March 7t h. - Recommended fasting labs to be complet ed before breakfast. [place] [facility] - Therapist: Seen twice a month for anxi ety management. - Chiropractor: Visited for sciatica man agement. Medications - Buspirone 5 mg as needed for anxiety - Fluoxetine 10 mg for anxiety - Gabapentin 300 mg at bedtime for anxie ty - Zyrtec for allergic rhinitis Patient Instructions - Complete fasting labs before breakfast . - Take Medrol Dosepak as prescribed, wit h food. - Follow up in 10 days or sooner if symp toms worsen. - Consider physical therapy for sciatica management. - increase gabapentin dose to do capsule at night 300 mg Call me in 10 days to update me Review of Systems - General: No fever no chills - Neurological: No headaches no dizzin ess - Ear nose throat: No sore throat no hearing difficulty no ear pain - Cardiovascular: No syncope, no chest pain, no palpitations - Gastrointestinal: No nausea vomiting or diarrhea - Endocrine: No polyuria polydipsia no heat intolerance - Genitourinary: No dysuria - Skin: No new complaints Physical Exam General: Cooperative, healthy appearing, comfortable, no acute distress Orientation: Patient oriented x3 Head: Normal to inspection Ears: Within normal limit visually Nose: Normal external nose present Face and sinus: Normal facial exam Eyes: Appearance normal, extraocular movement intact pupils reactive Neck: Normal visual inspection and supple Respiratory: Normal respiratory effort and able to speak in complete sentences. Clear to auscultation, no stridor Cardiovascular: S1 and S2 RRR GI: Normal to inspection. Soft to palpation and nontender Skin: Turgor normal, no acute findings Neuro: Patient oriented x3, motor sensory intact, balance intact, tandem pass Extremities: Normal to inspection, straight leg sign positive on the left side [facility] Medical History Uterus didelphus Tonsillectomy planned Asthma COVID-19 long hauler Cough present for greater than 3 weeks Surgical History [place] teeth extracted Social History Housing: House Alcohol intake: current Alcohol intake frequency: holidays/special occasions only Patient Tobacco Use Status: Never used Tobacco e-Cigarette/Vaping Use: Never Used Second Hand Smoke Exposure: No Current occupational status: unemployed Cognitive needs: No Hearing needs: No Vision needs: No Female Reproductive History Menstrual Age of Menarche: 11 Questionnaire PHQ-9 Over the last 2 weeks, how often have you been bothered by any of the following problems? 1. Little interest or pleasure in doing things: not at all 2. Feeling down, depressed, or hopeless: not at all 3. Trouble falling or staying asleep, or sleeping too much: not at all 4. Feeling tired or having little energy: several days 5. Poor appetite or overeating: several days 6. Feeling bad about yourself - or that you are a failure or have let yourself or your family down: not at all 7. Trouble concentrating on things, such as reading the newspaper or watching television: not at all 8. Moving or speaking so slowly that other people could have noticed. Or the opposite - being so fidgety or restless that you have been moving around a lot more than usual: not at all 9. Thoughts that you would be better off or of hurting yourself in some way: not at all Total score: 2 Depression Screening Interpretation: Negative Depression Screening Done: Yes [id number] - PHQ-9 Billing: Yes Source: Developed by Drs. Garfield Kimball, Ailin Corrales, Julio C Slaughter and colleagues, with an educational andi from [employer]. Thrive Questionnaire Date Thrive assessed: 11/09/24 I am a: Patient What is your living situation today?: I have a steady place to live Within the past 12 months, did the food you bought not last and you didn't have the money to get more?: Never true Within the past 12 months, did you worry whether your food would run out before you got money to buy more?: Never true Do you have trouble paying for medicines?: No Do you have trouble getting transportation to medical appointments?: No Do you have trouble paying your heating and electricity bill?: No Do you have trouble taking care of your child, family member or friend?: No Do you have trouble with day-to-day activities such as bathing, preparing meals, shopping, managing finances, etc.?: No Are you currently unemployed and looking for a job?: No Are you interested in more education?: No Please select the resources that you would like help with: None Currently or been in a relationship where the following occur: No concerns reported THRIVE Score: 0 MILADYS-7 AMB Questionnaire MILADYS-7 Date MILADYS - 7 assessed: 05/20/24 Source: Developed by Drs. Garfield Kimball, Ailin Corrales, Julio C Slaughter and colleagues, with an educational andi from [employer]. Physical exam (Primary Care) Vital Signs: Last Vital Signs Temp 99.1 F 11/09/24 15:30 Pulse 99 11/09/24 15:30 BP 126/88 11/09/24 15:30 Pulse Ox 99 11/09/24 15:30 Oxygen Delivery Method Room Air 11/09/24 15:30 BMI result Body Mass Index 34.6 Tobacco/Smoking Status: Tobacco use Status Tobacco use date assessed 11/09/24 11/09/24 15:39 Patient Tobacco Use Status Never used Tobacco 11/09/24 15:39 e-Cigarette/Vaping Use Never Used 11/09/24 15:39 PHQ-9: PHQ-9 Score PHQ-9: Total score 2 11/09/24 15:39 Depression Screening Interpretation: Negative Thrive Assessment: Date of Thrive Assessment Date Thrive assessed 11/09/24 11/09/24 15:39 Currently or been in a relationship where the following occur: No concerns reported Coding Level of Care Code Est Pt Level 3 (12430) Est Pt Prev Care 18-39y(12134) Diagnoses Encounter for general adult medical examination with abnormal findings Z00. 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 Obesity (BMI 35.0-39.9 without comorbidity) E66.9 Anxiety, generalized F41.1 Environmental allergies Z91.09 Additional Codes PHQ-9 - 38674 - PHQ-9 Billing: Yes ([id number]) Assessment & Plan Assessment & Plan (1) Encounter for general adult medical examination with abnormal findings: Code(s): Z00.01 - Encounter for general adult medical examination with abnormal findings Category: Medical (2) Meralgia paraesthetica: Code(s): G57.10 - Meralgia paresthetica, unspecified lower limb Category: Medical Qualifiers: Laterality: left Qualified Code(s): G57.12 - Meralgia paresthetica, left lower limb (3) Left lumbar radiculitis: Code(s): M54.16 - Radiculopathy, lumbar region Category: Medical (4) Hemochromatosis associated with compound heterozygous mutation in HFE gene: Code(s): E83.110 - Hereditary hemochromatosis Category: Medical (5) Obesity (BMI 35.0-39.9 without comorbidity): Code(s): E66.9 - Obesity, unspecified Category: Medical (6) Anxiety, generalized: Code(s): F41.1 - Generalized anxiety disorder Category: Medical (7) Environmental allergies: Code(s): Z91.09 - Other allergy status, other than to drugs and biological substances Category: Medical Plan Physical exam - The patient is a 34-year-old female presenting with anxiety and sciatica. - Anxiety: The patient reports fluctuating anxiety levels, managed with fluoxetine 10 mg and buspirone 5 mg as needed. - She sees a therapist twice a month, which helps manage her anxiety. - She has tried increasing fluoxetine to 20 mg but experienced numbness, leading her to revert to the lower dose. - Sciatica: The patient reports left-sided sciatica for the past three months, with symptoms exacerbated by certain movements. - She has been trying stretching exercises, massages, and home care attendant without significant relief. - The straight leg raise test is positive, indicating nerve involvement. - She has taken ibuprofen some relief - Allergic rhinitis: Managed with Zyrtec. Health Maintenance - Scheduled DEMOLITION SPECIALIST visit for March 18. - Recommended fasting labs to be completed before breakfast. [place] [facility] - Therapist: Seen twice a month for anxiety management. - Chiropractor: Visited for sciatica management. Medications - Buspirone 5 mg as needed for anxiety - Fluoxetine 10 mg for anxiety - Gabapentin 300 mg at bedtime for anxiety - Zyrtec for allergic rhinitis Patient Instructions - Complete fasting labs before breakfast. - Take Medrol Dosepak as prescribed, with food. - Follow up in 10 days or sooner if symptoms worsen. - Consider physical therapy for sciatica management. - increase gabapentin dose to do capsule at night 300 mg Call me in 10 days to update me Medications: New methylprednisolone (Medrol (Mata)) PO PER PKG DIR 21 ea 0RF 6 days
== END 2024-11-09 16:00 | disposition home or self-care (01) ==
LOC: HO.HMCC 15:18
PROVIDERS: PCP Internal Medicine; Visit Provider Internal Medicine
DX: Z00.01 Encounter for general adult medical examination with abnormal findings (principal); G57.12 Meralgia paresthetica, left lower limb; E66.9 Obesity, unspecified; Z68.34 Body mass index [BMI] 34.0-34.9, adult; E83.110 Hereditary hemochromatosis; F41.1 Generalized anxiety disorder; Z91.09 Other allergy status, other than to drugs and biological substances

== ENCOUNTER → 2024-11-09 15:18 | Outpatient (BNVA) | payer OTHER, SELFPAY | PROVIDERS: PCP Internal Medicine; Visit Provider Internal Medicine | DX: Z00.01 Encounter for general adult medical examination with abnormal findings (principal); M54.32 Sciatica, left side; F41.9 Anxiety disorder, unspecified; M54.16 Radiculopathy, lumbar region; E83.110 Hereditary hemochromatosis; E66.9 Obesity, unspecified; F41.1 Generalized anxiety disorder; Z91.09 Other allergy status, other than to drugs and biological substances; Z68.34 Body mass index [BMI] 34.0-34.9, adult | CPT/HCPCS: 96127; 99212; 99395 ==

== ENCOUNTER 2024-12-01 13:06 | Outpatient (AMB) | payer OTHER, SELFPAY ==
[2024-12-01 13:15] VITALS: BP 108/74; PULSE 90; O2SAT 98; BMI 34.9
--- NOTE | 2024-12-01 13:15 | A.OFFPC_ITS ---
Vital Signs 12/01/24 13:15 Height 5 ft 3 in Weight 197 lb BMI 34.9 BP 108/74 Blood Pressure Location Lt brachial Position Sitting Pulse 90 Pulse Source Pulse Oximeter Pulse Oximetry (%) 98 Oxygen Delivery Method Room Air Intake Visit Reasons: f/u on medication Allergies bee pollen Allergy (Intermediate, Verified 12/01/24 13:15) swelling itchy Medication List - Last Reconciled 12/01/24 by Hugo Gomez MD albuterol sulfate 90 mcg/actuation (ProAir HFA) 1 inh inhalation Q4-6H PRN buspirone 5 mg PO ONCE PRN 90 days cetirizine (Zyrtec) 10 mg PO DAILY PRN desog-e.estradiol/e.estradiol 0.15-0.02 mgx21 /0.01 mg x 5 1 tab PO DAILY fluoxetine 10 mg PO DAILY 90 days gabapentin 300 mg PO BEDTIME 90 days glycopyrrolate 1 mg PO BID-TID PRN lidocaine 5% (Lidoderm) 1 patch topical DAILY Tobacco use date assessed: 11/09/24 Dental Screening Dental Screen Date: 05/20/24 HPI f/u on medication HPI Details History - The patient is a 34-year-old female pr esenting with pain associated with sciatica. - The patient reports experiencing left- sided pain radiating down the leg. - The onset of symptoms was prior to the last visit on November 09, during which the patient was advised to call if prednisone was ineffective. - The patient describes the sensation as occasional cramp-like pain, similar to soreness left after a cramp resolves, mainly occurring when moving or changing positions. - The pain sometimes shoots down the leg , particularly when moving from a seated or lying position. - The patient has a history of sciatica with no accompanying back pain initially reported, but current symptoms include back pain. - The patient has previously tried ibupr ofen and metacarbal, which did not alleviate the symptoms, suggesting that muscle spasm might not be the underlying issue. - The sciatica symptoms are described as fluctuating. Medical History: - Anxiety - Sciatica - Ongoing management with fluoxetine and buspirone for anxiety. Surgical History: - History of surgery necessitating posto perative Percocet administration, but not specified. Medications: - Fluoxetine for anxiety - Buspirone for anxiety - Gabapentin, 300 mg at bedtime for pain management Problem List - Anxiety - Sciatica Patient Instructions - Take the prescribed diclofenac twice a day with food for a period of at least one week. - Proceed for an x-ray of the lumbar spi ne and hip without needing a scheduled appointment. - Continue gabapentin at 300 mg if effec tive; adjust dosage based on symptom relief. - Schedule a follow-up visit after two w eeks to reassess pain or earlier if symptoms persist. Review of Systems - General: No fever no chills - Neurological: No headaches no dizziness - Ear nose throat: No sore throat no hearing difficulty no ear pain - Cardiovascular: No syncope, no chest pain, no palpitations - Gastrointestinal: No nausea vomiting or diarrhea - Endocrine: No polyuria polydipsia no heat intolerance - Genitourinary: No dysuria , no blood in urine Physical Exam General: No acute distress HEENT: No acute findings Neck: Supple Respiratory system: Able to talk in full sentences, no audible wheeze Cardiovascular: S1-S2 regular in rate and rhythm Gastrointestinal: No pain Extremities: Left-sided pain going down the leg, occasional soreness 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 awake oriented x3 motor sensory intact straight leg positive left Skin: Normal turgor, initial pain felt in lumbar area when moving PFSH Medical History Uterus didelphus Tonsillectomy planned Asthma COVID-19 long hauler Cough present for greater than 3 weeks Surgical History [place] teeth extracted Social History Housing: House Alcohol intake: current Alcohol intake frequency: holidays/special occasions only Patient Tobacco Use Status: Never used Tobacco e-Cigarette/Vaping Use: Never Used Second Hand Smoke Exposure: No Current occupational status: unemployed Cognitive needs: No Hearing needs: No Vision needs: No Female Reproductive History Menstrual Age of Menarche: 11 Questionnaire Thrive Questionnaire Date Thrive assessed: 12/01/24 I am a: Patient What is your living situation today?: I have a steady place to live Within the past 12 months, did the food you bought not last and you didn't have the money to get more?: Never true Within the past 12 months, did you worry whether your food would run out before you got money to buy more?: Never true Do you have trouble paying for medicines?: No Do you have trouble getting transportation to medical appointments?: No Do you have trouble paying your heating and electricity bill?: No Do you have trouble taking care of your child, family member or friend?: No Do you have trouble with day-to-day activities such as bathing, preparing meals, shopping, managing finances, etc.?: No Are you currently unemployed and looking for a job?: No Are you interested in more education?: No Please select the resources that you would like help with: None Currently or been in a relationship where the following occur: No concerns reported THRIVE Score: 0 MILADYS-7 AMB Questionnaire MILADYS-7 Date MILADYS - 7 assessed: 12/01/24 Feeling nervous, anxious, or on edge: 1 = Several days Not being able to stop or control worryin = Not at all Worrying too much about different things: 0 = Not at all Trouble relaxin = Not at all Being so restless that it is hard to sit still: 0 = Not at all Becoming easily annoyed or irritable: 1 = Several days Feeling afraid as if something awful might happen: 0 = Not at all Total MILADYS-7 score (0-4 normal; 5-9 mild; 10-14 moderate; 15-21 severe): 2 Source: Developed by Drs. Garfield Kimball, Ailin Corrales, Julio C Slaughter and colleagues, with an educational andi from [employer]. MILADYS-7 Assessment Billing MILADYS-7 Assessment Tool: MILADYS-7 Assessment 64586 Physical exam (Primary Care) Vital Signs: Last Vital Signs Pulse 90 12/01/24 13:15 BP 108/74 12/01/24 13:15 Pulse Ox 98 12/01/24 13:15 Oxygen Delivery Method Room Air 12/01/24 13:15 BMI result Body Mass Index 34.9 Tobacco/Smoking Status: Tobacco use Status Tobacco use date assessed 11/09/24 12/01/24 13:20 Patient Tobacco Use Status Never used Tobacco 12/01/24 13:20 e-Cigarette/Vaping Use Never Used 12/01/24 13:20 Thrive Assessment: Date of Thrive Assessment Date Thrive assessed 12/01/24 12/01/24 13:20 Currently or been in a relationship where the following occur: No concerns reported Coding Level of Care Code Est Pt Level 3 (63947) Diagnoses Radicular pain of left lower extremity M54.10 Additional Codes MILADYS-7 Assessment Billing - MILADYS-7 Assessment Tool: MILADYS-7 Assessment 58268 ([id number]) Assessment & Plan Assessment & Plan (1) Radicular pain of left lower extremity: Code(s): M54.10 - Radiculopathy, site unspecified Category: Medical Plan History - The patient is a 34-year-old female presenting with pain associated with sciatica. - The patient reports experiencing left-sided pain radiating down the leg. - The onset of symptoms was prior to the last visit on November 09, during which the patient was advised to call if prednisone was ineffective. - The patient describes the sensation as occasional cramp-like pain, similar to soreness left after a cramp resolves, mainly occurring when moving or changing positions. - The pain sometimes shoots down the leg, particularly when moving from a seated or lying position. - The patient has a history of sciatica with no accompanying back pain initially reported, but current symptoms include back pain. - The patient has previously tried ibuprofen and metacarbal, which did not alleviate the symptoms, suggesting that muscle spasm might not be the underlying issue. - The sciatica symptoms are described as fluctuating. Medical History: - Anxiety - Sciatica - Ongoing management with fluoxetine and buspirone for anxiety. Surgical History: - History of surgery necessitating postoperative Percocet administration, but not specified. Medications: - Fluoxetine for anxiety - Buspirone for anxiety - Gabapentin, 300 mg at bedtime for pain management Problem List - Anxiety - Sciatica Patient Instructions - Take the prescribed diclofenac twice a day with food for a period of at least one week. - Proceed for an x-ray of the lumbar spine and hip without needing a scheduled appointment. - Continue gabapentin at 300 mg if effective; adjust dosage based on symptom relief. - Schedule a follow-up visit after two weeks to reassess pain or earlier if symptoms persist. Orders: Orders XR hip LT min 2V Today M54.10 - Radiculopathy, site unspecified XR lumbar spine 2-3V Today M54.10 - Radiculopathy, site unspecified Medications: New diclofenac sodium 75 mg PO BID 20 tabs 0RF pain 10 days
== END 2024-12-01 13:42 | disposition home or self-care (01) ==
LOC: HO.HMCC 13:07
PROVIDERS: PCP Internal Medicine; Visit Provider Internal Medicine
DX: M54.10 Radiculopathy, site unspecified (principal)

== ENCOUNTER → 2024-12-01 13:06 | Outpatient (BNVA) | payer OTHER, SELFPAY | PROVIDERS: PCP Internal Medicine; Visit Provider Internal Medicine | DX: M54.10 Radiculopathy, site unspecified (principal); M54.30 Sciatica, unspecified side | CPT/HCPCS: 96127; 99212 ==

== ENCOUNTER 2024-12-04 09:04 | Outpatient (REF) | payer OTHER, SELFPAY ==
--- NOTE | ~2024-12-04 | XR_ITS ---
CLINICAL HISTORY: M54.10 - Radiculopathy, site unspecified 2 view left hip Comparison: None provided Findings: Minimal left hip osteoarthritis. No fracture or femoral head avascular necrosis. IMPRESSION: No acute findings. This document has been electronically signed by: Yfn Davis DO on 12/04/2024 10:28:26
--- NOTE | ~2024-12-04 | XR_ITS ---
CLINICAL HISTORY: M54.10 - Radiculopathy, site unspecified 3 views lumbar spine Comparison: None Findings: The usual lumbar lordosis is maintained without spondylolisthesis. Vertebral body heights are maintained. Minimal to mild multilevel discogenic degenerative disease. IMPRESSION: No acute findings. This document has been electronically signed by: Yfn Davis DO on 12/04/2024 10:27:20
[2024-12-04 11:43] LABS: MANUAL DIFF FLAG NO
[2024-12-04 12:04] LABS: Hematocrit 40.3 % (37.0-47.0); Hemoglobin 13.1 g/dl (12.0-16.0); Imm Gran Abs Auto 0.02 X10*3/uL (0.00-0.03); Imm Gran Pct Auto 0.3 % (0.0-0.4); Lymphocytes Absolute Auto 2.2 X10*3/uL (1.2-4.9); Mean Corpuscular HGB Conc 32.5 g/dl (31.0-35.0); Mean Corpuscular Hemoglobin 28.7 pg (27.0-33.0); Mean Corpuscular Volume 88.2 fL (80.0-98.0); NRBC Abs Auto 0.000 X10*3/uL (0.0-0.012); NRBC Pct Auto 0.0 /100WBC (0.0-0.2); Platelet Count 312 X10*3/uL (160-400); Red Blood Count 4.57 X10*6/uL (4.20-5.50); White Blood Count 6.5 X10*3/uL (4.8-10.8)
[2024-12-04 12:39] LABS: Alanine Aminotransferase 20 U/L (0-31); Albumin Level 4.4 g/dL (3.5-5.0); Alkaline Phosphatase 67 U/L (39-117); Anion Gap 14 (12-20); Aspartate Amino Transferase 22 U/L (5-31); Blood Urea Nitrogen 16 mg/dL (9-16); Calcium 9.2 mg/dL (8.4-10.2); Carbon Dioxide 22 mmol/L (22-29); Chloride 110 mmol/L (96-108); Cholesterol 219 mg/dL (<200); Estimated Glomerular Filt Rate > 60; Ferritin 114 ng/mL (10-122); HDL Cholesterol 56 mg/dL (>40); Potassium 4.5 mmol/L (3.3-5.1); Sodium 141 mmol/L (135-145); Total Protein 7.6 g/dL (6.5-8.0); Triglycerides 189 mg/dL (<150)
== END 2024-12-04 09:05 | disposition home or self-care (01) ==
LOC: HO.HMGCX 09:04
PROVIDERS: PCP Internal Medicine; Visit Provider Internal Medicine
DX: E83.110 Hereditary hemochromatosis (principal); R79.89 Other specified abnormal findings of blood chemistry; E78.9 Disorder of lipoprotein metabolism, unspecified; G57.12 Meralgia paresthetica, left lower limb; F41.1 Generalized anxiety disorder; E66.9 Obesity, unspecified; Z91.09 Other allergy status, other than to drugs and biological substances
CPT/HCPCS: 36415; 72100; 73502; 80053; 80061; 82728; 84443; 85025

== ENCOUNTER → 2024-12-04 09:07 | Outpatient (BNV) | payer OTHER, SELFPAY | PROVIDERS: PCP Internal Medicine; Visit Provider Radiology Diagnostic Radiology | DX: M54.10 Radiculopathy, site unspecified (principal); M54.16 Radiculopathy, lumbar region | CPT/HCPCS: 72100; 73502 ==

== ENCOUNTER 2024-12-15 08:47 | Outpatient (AMB) | payer OTHER, SELFPAY ==
[2024-12-15 08:54] VITALS: BP 112/80; PULSE 85; O2SAT 97; BMI 34.9
--- NOTE | 2024-12-15 08:54 | A.OFFPC_ITS ---
Vital Signs 12/15/24 08:54 Height 5 ft 3 in Weight 197 lb BMI 34.9 BP 112/80 Blood Pressure Location Lt brachial Position Sitting Pulse 85 Pulse Source Pulse Oximeter Pulse Oximetry (%) 97 Oxygen Delivery Method Room Air Intake Visit Reasons: 2 week f/u-OK by Dr. Gomez Allergies bee pollen Allergy (Intermediate, Verified 12/15/24 08:54) swelling itchy Medication List - Last Reconciled 12/15/24 by Hugo Gomez MD albuterol sulfate 90 mcg/actuation (ProAir HFA) 1 inh inhalation Q4-6H PRN buspirone 5 mg PO ONCE PRN 90 days cetirizine (Zyrtec) 10 mg PO DAILY PRN desog-e.estradiol/e.estradiol 0.15-0.02 mgx21 /0.01 mg x 5 1 tab PO DAILY diclofenac sodium 75 mg PO BID 10 days fluoxetine 10 mg PO DAILY 90 days gabapentin 300 mg PO BEDTIME 90 days glycopyrrolate 1 mg PO BID-TID PRN lidocaine 5% (Lidoderm) 1 patch topical DAILY Tobacco use date assessed: 11/09/24 Dental Screening Dental Screen Date: 05/20/24 HPI 2 week f/u-OK by Dr. Gomez HPI Details Chief complaint 2 week follow-up - Sciatica, noted with left-sided pain - Lumbar arthritis - Expected sciatica improvement with med ication History of Present Illness - The patient is a 34-year-old female pr esenting with sciatica and lumbar pain symptoms. - The sciatica was reported as left-side d and has been persistent for approximately four months. - Initially experienced persistent pain, now improved with medication but still occurring occasionally. - The sciatica is attributed to a pinche d nerve in the back, particularly when engaging in activities like prolonged standing, bending, or twisting. - Describes notable pain improvement sin ce starting medication approximately two weeks ago, though occasional episodes persist. - Pain is reported to flare with specifi c activities such as walking or lying down.. - X-ray findings have identified early-s tage osteoarthritis in the lumbar spine and left hip, interpreted as minimal. Medications: - Pain medication for sciatica (specific medication details not mentioned), aiding in pain reduction. Social History: - Reported recent attendance at a [email or web address], which implies engaging in social activities. - Lives close to healthcare facilities, indicating considerations for ease of access to physical therapy. - Expressed concern about weight, with a Body Mass Index (BMI) reported as 34.9, with an intention for possible weight management and its role in aggravating arthritis. Family History: - Grandmother has a history of spinal st enosis. - Mother with a history of arthritis, po ssibly linked to obesity. Diagnostic Results: - X-ray findings revealed: - Lumbar spin e: Early-stage arthritis; vertebral heights are maintained. - Hip: Minimal left hip osteoarthritis n oted. Problem List - Sciatica - Lumbar arthritis - Left hip osteoarthritis - Elevated Body Mass Index Patient Instructions - Continue current pain medication as it ?s helping. Diclofenac 75 mg b.i.d., script sent for another 2 weeks - Consider starting physical therapy to aid recovery. - Avoid standing for long periods, bendi ng, or twisting to prevent aggravating the sciatica. - Use cushion support if sitting causes discomfort. - Be mindful of weight management as a l mary jane-term strategy to relieve arthritis symptoms. - update me in two weeks to assess progr ess. - Take medication with food to avoid gas trointestinal discomfort. Review of Systems - General: No fever no chills - Neurological: No headaches no dizziness - Ear nose throat: No sore throat no hearing difficulty no ear pain - Cardiovascular: No syncope, no chest pain, no palpitations - Gastrointestinal: No nausea vomiting or diarrhea - Endocrine: No polyuria polydipsia no heat intolerance - Genitourinary: No dysuria , no blood in urine Physical Exam - General: No acute distress - HEENT: No acute findings - Neck: Supple - Respiratory system: Able to talk in f ull sentences, no audible wheeze - Cardiovascular: S1-S2 regular in rate and rhythm - Gastrointestinal: No pain - Extremities: No new findings - 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 awake oriented x3 motor se nsory intact , straight leg left side still positive but improved from before - Skin: Normal turgor PFSH Medical History Uterus didelphus Tonsillectomy planned Asthma COVID-19 long hauler Cough present for greater than 3 weeks Surgical History [place] teeth extracted Social History Housing: House Alcohol intake: current Alcohol intake frequency: holidays/special occasions only Patient Tobacco Use Status: Never used Tobacco e-Cigarette/Vaping Use: Never Used Second Hand Smoke Exposure: No Current occupational status: unemployed Cognitive needs: No Hearing needs: No Vision needs: No Female Reproductive History Menstrual Age of Menarche: 11 Questionnaire Thrive Questionnaire Date Thrive assessed: 07/28/24 I am a: Patient What is your living situation today?: I have a steady place to live Within the past 12 months, did the food you bought not last and you didn't have the money to get more?: Never true Within the past 12 months, did you worry whether your food would run out before you got money to buy more?: Never true Do you have trouble paying for medicines?: No Do you have trouble getting transportation to medical appointments?: No Do you have trouble paying your heating and electricity bill?: No Do you have trouble taking care of your child, family member or friend?: No Do you have trouble with day-to-day activities such as bathing, preparing meals, shopping, managing finances, etc.?: No Are you currently unemployed and looking for a job?: No Are you interested in more education?: No Please select the resources that you would like help with: None Currently or been in a relationship where the following occur: No concerns reported THRIVE Score: 0 MILADYS-7 AMB Questionnaire MILADYS-7 Date MILADYS - 7 assessed: 12/01/24 Source: Developed by Drs. Garfield Kimball, Ailin Corrales, Julio C Slaughter and colleagues, with an educational andi from [employer]. Physical exam (Primary Care) Vital Signs: Last Vital Signs Pulse 85 12/15/24 08:54 BP 112/80 12/15/24 08:54 Pulse Ox 97 12/15/24 08:54 Oxygen Delivery Method Room Air 12/15/24 08:54 BMI result Body Mass Index 34.9 Tobacco/Smoking Status: Tobacco use Status Tobacco use date assessed 11/09/24 12/15/24 08:56 Patient Tobacco Use Status Never used Tobacco 12/15/24 08:56 e-Cigarette/Vaping Use Never Used 12/15/24 08:56 Thrive Assessment: Date of Thrive Assessment Date Thrive assessed 07/28/24 12/15/24 08:56 Currently or been in a relationship where the following occur: No concerns reported Coding Level of Care Code Est Pt Level 3 (54218) Diagnoses Left lumbar radiculitis M54.16 Degenerative joint disease (DJD) of lumbar spine M47.816 Arthritis of left hip M16.12 Obesity (BMI 35.0-39.9 without comorbidity) E66.9 Assessment & Plan Assessment & Plan (1) Left lumbar radiculitis: Code(s): M54.16 - Radiculopathy, lumbar region Category: Medical (2) Degenerative joint disease (DJD) of lumbar spine: Code(s): M47.816 - Spondylosis without myelopathy or radiculopathy, lumbar region Category: Medical (3) Arthritis of left hip: Code(s): M16.12 - Unilateral primary osteoarthritis, left hip Category: Medical (4) Obesity (BMI 35.0-39.9 without comorbidity): Code(s): E66.9 - Obesity, unspecified Category: Medical Plan Chief complaint 2 week follow-up - Sciatica, noted with left-sided pain - Lumbar arthritis - Expected sciatica improvement with medication History of Present Illness - The patient is a 34-year-old female presenting with sciatica and lumbar pain symptoms. - The sciatica was reported as left-sided and has been persistent for approximately four months. - Initially experienced persistent pain, now improved with medication but still occurring occasionally. - The sciatica is attributed to a pinched nerve in the back, particularly when engaging in activities like prolonged standing, bending, or twisting. - Describes notable pain improvement since starting medication approximately two weeks ago, though occasional episodes persist. - Pain is reported to flare with specific activities such as walking or lying down.. - X-ray findings have identified early-stage osteoarthritis in the lumbar spine and left hip, interpreted as minimal. Medications: - Pain medication for sciatica (specific medication details not mentioned), aiding in pain reduction. Social History: - Reported recent attendance at a concert, which implies engaging in social activities. - Lives close to healthcare facilities, indicating considerations for ease of access to physical therapy. - Expressed concern about weight, with a Body Mass Index (BMI) reported as 34.9, with an intention for possible weight management and its role in aggravating arthritis. Family History: - Grandmother has a history of spinal stenosis. - Mother with a history of arthritis, possibly linked to obesity. Diagnostic Results: - X-ray findings revealed: - Lumbar spine: Early-stage arthritis; vertebral heights are maintained. - Hip: Minimal left hip osteoarthritis noted. Problem List - Sciatica - Lumbar arthritis - Left hip osteoarthritis - Elevated Body Mass Index Patient Instructions - Continue current pain medication as it?s helping. Diclofenac 75 mg b.i.d., script sent for another 2 weeks - Consider starting physical therapy to aid recovery. - Avoid standing for long periods, bending, or twisting to prevent aggravating the sciatica. - Use cushion support if sitting causes discomfort. - Be mindful of weight management as a long-term strategy to relieve arthritis symptoms. - update me in two weeks to assess progress. - Take medication with food to avoid gastrointestinal discomfort. Orders: Orders PT Evaluation and Treatment Today M54.16 - Radiculopathy, lumbar region Medications: Changed From diclofenac sodium 75 mg PO BID 10 days 20 tabs 0RF pain To diclofenac sodium 75 mg PO BID 30 tabs 0RF pain 15 days
== END 2024-12-15 10:24 | disposition home or self-care (01) ==
LOC: HO.HMCC 08:48
PROVIDERS: PCP Internal Medicine; Visit Provider Internal Medicine
DX: M54.16 Radiculopathy, lumbar region (principal); M47.816 Spondylosis without myelopathy or radiculopathy, lumbar region; M16.12 Unilateral primary osteoarthritis, left hip; E66.9 Obesity, unspecified; Z68.34 Body mass index [BMI] 34.0-34.9, adult

== ENCOUNTER → 2024-12-15 08:47 | Outpatient (BNVA) | payer OTHER, SELFPAY | PROVIDERS: PCP Internal Medicine; Visit Provider Internal Medicine | DX: M54.32 Sciatica, left side (principal); M54.16 Radiculopathy, lumbar region; M47.816 Spondylosis without myelopathy or radiculopathy, lumbar region; M16.12 Unilateral primary osteoarthritis, left hip; E66.9 Obesity, unspecified; Z68.34 Body mass index [BMI] 34.0-34.9, adult | CPT/HCPCS: 99212 ==

== ENCOUNTER 2025-02-11 08:15 | Outpatient (AMB) | payer OTHER, SELFPAY ==
[2025-02-11 08:18] VITALS: BP 118/78; PULSE 91; RESP 16; O2SAT 98; BMI 35.6
--- NOTE | 2025-02-11 08:18 | A.OFFPC_ITS ---
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 Accompanied by: Self / Same As Patient Allergies bee pollen Allergy (Intermediate, Verified 02/11/25 08:21) swelling itchy Medication List - Last Reconciled 02/11/25 by Hugo Gomez MD albuterol sulfate 90 mcg/actuation (ProAir HFA) 1 inh inhalation Q4-6H PRN buspirone 5 mg PO ONCE PRN 90 days cetirizine (Zyrtec) 10 mg PO DAILY PRN desog-e.estradiol/e.estradiol 0.15-0.02 mgx21 /0.01 mg x 5 1 tab PO DAILY diclofenac sodium 75 mg PO BID 15 days fluoxetine 10 mg PO DAILY 90 days gabapentin 300 mg PO BEDTIME 90 days glycopyrrolate 1 mg PO BID-TID PRN lidocaine 5% (Lidoderm) 1 patch topical DAILY Tobacco use date assessed: 02/11/25 Dental Screening Dental Screen Date: 02/11/25 Did you have a dental visit in the last 12 months?: Yes Did you have a dental problem in the last 6 months where you did not have access to dental care?: No Was dental information given to patient?: Patient has dentist HPI 3m f/u HPI Details History The patient is a 34-year-old female presenting regular follow-up appointment and medication refill Persistent Overheating: - Reports feeling excessively warm and u ncomfortable, even at mild temperatures around 70 degrees Fahrenheit. - Patient experiences sweating and has n oticed this symptom predominantly over the past summer. - Denies the sensation being similar to hot flashes. - The patient has been on an oral contra ceptive with a higher estrogen dose since March of the previous year, which has potentially contributed to these symptoms. Neuralgia Parasthetica (Left Side): - History of sciatica-related pain, estrellita ged with gabapentin. - Reports pain recurrence when medicatio n doses are missed. - Prior prescription of diclofenac for l umbar radiculitis left. - need to be reduced to 50 mg to avoid s bridget effects and then we will cut it further down to once a day Medical History: - Asthma, currently stable. - Anxiety, managed with buspirone and fl uoxetine. - Neuralgia parasthetica of the left yessi e. - obesity with BMI of 35 0.6. Medications: - Buspirone for anxiety management. - Fluoxetine for anxiety management. - Gabapentin for neuralgia parasthetica of the left side. - Diclofenac, previously prescribed for 15 days, continues to be taken twice daily for pain control. - Oral contraceptive with higher estroge n dose for control. - Albuterol inhaler for asthma. Social History: - Currently in the process of moving to [place], which will increase travel time to appointments. Problem List - Neuralgia parasthetica (left side) - obesity - Asthma - Anxiety Diagnostic results - Labs: Complete Blood Count (CBC) jaleel l, electrolytes normal, kidney functions normal, liver enzymes normal, LDL level at 126, thyroid function normal. Patient Instructions - Gradually reduce the use of Diclofenac to prevent long-term side effects and switch to a milder form if needed. - Continue using Albuterol inhaler as ne eded for asthma. - Refill all prescribed medications, inc luding an updated Albuterol inhaler. - Return in 4 months for a follow-up alysa ointment. 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 x3 motor intact skin: Normal turgor PFSH Medical History Uterus didelphus Tonsillectomy planned Asthma COVID-19 long hauler Cough present for greater than 3 weeks Surgical History [place] teeth extracted Social History Housing: House Alcohol intake: current Alcohol intake frequency: holidays/special occasions only Patient Tobacco Use Status: Never used Tobacco e-Cigarette/Vaping Use: Never Used Second Hand Smoke Exposure: No Current occupational status: unemployed Cognitive needs: No Hearing needs: No Vision needs: No Female Reproductive History Menstrual Age of Menarche: 11 Questionnaire Thrive Questionnaire Date Thrive assessed: 07/28/24 I am a: Patient What is your living situation today?: I have a steady place to live Within the past 12 months, did the food you bought not last and you didn't have the money to get more?: Never true Within the past 12 months, did you worry whether your food would run out before you got money to buy more?: Never true Do you have trouble paying for medicines?: No Do you have trouble getting transportation to medical appointments?: No Do you have trouble paying your heating and electricity bill?: No Do you have trouble taking care of your child, family member or friend?: No Do you have trouble with day-to-day activities such as bathing, preparing meals, shopping, managing finances, etc.?: No Are you currently unemployed and looking for a job?: No Are you interested in more education?: No Please select the resources that you would like help with: None Currently or been in a relationship where the following occur: No concerns reported THRIVE Score: 0 MILADYS-7 AMB Questionnaire MILADYS-7 Date MILADYS - 7 assessed: 12/01/24 Source: Developed by Drs. Garfield Kimball, Ailin Corrales, Julio C Slaughter and colleagues, with an educational andi from [employer]. Physical exam (Primary Care) Vital Signs: Last Vital Signs Pulse 91 02/11/25 08:18 Resp 16 02/11/25 08:18 BP 118/78 02/11/25 08:18 Pulse Ox 98 02/11/25 08:18 Oxygen Delivery Method Room Air 02/11/25 08:18 BMI result Body Mass Index 35.6 Tobacco/Smoking Status: Tobacco use Status Tobacco use date assessed 02/11/25 02/11/25 08:21 Patient Tobacco Use Status Never used Tobacco 02/11/25 08:21 e-Cigarette/Vaping Use Never Used 02/11/25 08:21 Thrive Assessment: Date of Thrive Assessment Date Thrive assessed 07/28/24 02/11/25 08:21 Currently or been in a relationship where the following occur: No concerns reported Coding Level of Care Code Est Pt Level 4 (21249) Diagnoses Meralgia paresthetica of left side G57.12 Laterality: left Anxiety, generalized F41.1 Obesity (BMI 35.0-39.9 without comorbidity) E66.9 Lipid disorder E78.9 Environmental allergies Z91.09 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 Assessment & Plan Assessment & Plan (1) Meralgia paraesthetica: Code(s): G57.10 - Meralgia paresthetica, unspecified lower limb Category: Medical Qualifiers: Laterality: left Qualified Code(s): G57.12 - Meralgia paresthetica, left lower limb (2) Anxiety, generalized: Code(s): F41.1 - Generalized anxiety disorder Category: Medical (3) Obesity (BMI 35.0-39.9 without comorbidity): Code(s): E66.9 - Obesity, unspecified Category: Medical (4) Lipid disorder: Code(s): E78.9 - Disorder of lipoprotein metabolism, unspecified Category: Medical (5) Environmental allergies: Code(s): Z91.09 - Other allergy status, other than to drugs and biological substances Category: Medical (6) Hemochromatosis associated with compound heterozygous mutation in HFE gene: Code(s): E83.110 - Hereditary hemochromatosis Category: Medical Plan History The patient is a 34-year-old female presenting regular follow-up appointment and medication refill, has history of heterozygous hemochromatosis with normal ferritin at last blood test Persistent Overheating: - Reports feeling excessively warm and uncomfortable, even at mild temperatures around 70 degrees Fahrenheit. - Patient experiences sweating and has noticed this symptom predominantly over the past summer. - Denies the sensation being similar to hot flashes. - The patient has been on an oral contraceptive with a higher estrogen dose since March of the previous year, which has potentially contributed to these symptoms. Neuralgia Parasthetica (Left Side): - History of sciatica-related pain, managed with gabapentin. - Reports pain recurrence when medication doses are missed. - Prior prescription of diclofenac for lumbar radiculitis left. - need to be reduced to 50 mg to avoid side effects and then we will cut it further down to once a day Medical History: - Asthma, currently stable. - Anxiety, managed with buspirone and fluoxetine. - Neuralgia parasthetica of the left side. - obesity with BMI of 35 0.6. Medications: - Buspirone for anxiety management. - Fluoxetine for anxiety management. - Gabapentin for neuralgia parasthetica of the left side. - Diclofenac, previously prescribed for 15 days, continues to be taken twice daily for pain control. - Oral contraceptive with higher estrogen dose for control. - Albuterol inhaler for asthma. Social History: - Currently in the process of moving to [place], which will increase travel time to appointments. Problem List - Neuralgia parasthetica (left side) - obesity - Asthma - Anxiety - hemochromatosis Diagnostic results - Labs: Complete Blood Count (CBC) normal, electrolytes normal, kidney functions normal, liver enzymes normal, LDL level at 126, thyroid function normal. Patient Instructions - Gradually reduce the use of Diclofenac to prevent long-term side effects and switch to a milder form if needed. - Continue using Albuterol inhaler as needed for asthma. - Refill all prescribed medications, including an updated Albuterol inhaler. - Return in 4 months for a follow-up appointment. Medications: Changed From diclofenac sodium 75 mg PO BID 15 days 30 tabs 0RF pain To diclofenac sodium 50 mg PO BID 60 tabs 0RF pain 30 days Refilled albuterol sulfate 90 mcg/actuation (ProAir HFA) 1 inh inhalation Q4-6H PRN 6.7 grams 0RF shortness of breath or wheezing
== END 2025-02-11 08:32 | disposition home or self-care (01) ==
LOC: HO.HMCC 08:16
PROVIDERS: PCP Internal Medicine; Visit Provider Internal Medicine
DX: F41.1 Generalized anxiety disorder (principal); G57.12 Meralgia paresthetica, left lower limb; E66.9 Obesity, unspecified; Z68.35 Body mass index [BMI] 35.0-35.9, adult; E78.9 Disorder of lipoprotein metabolism, unspecified; Z91.09 Other allergy status, other than to drugs and biological substances; E83.110 Hereditary hemochromatosis

== ENCOUNTER → 2025-02-11 08:15 | Outpatient (BNVA) | payer OTHER, SELFPAY | PROVIDERS: PCP Internal Medicine; Visit Provider Internal Medicine | DX: M54.42 Lumbago with sciatica, left side (principal); G57.12 Meralgia paresthetica, left lower limb; F41.1 Generalized anxiety disorder; E83.110 Hereditary hemochromatosis; E66.9 Obesity, unspecified; Z68.35 Body mass index [BMI] 35.0-35.9, adult; Z91.09 Other allergy status, other than to drugs and biological substances | CPT/HCPCS: 99212 ==

== ENCOUNTER 2025-03-18 14:59 | Outpatient (AMB) | payer OTHER, SELFPAY ==
--- NOTE | 2025-03-18 15:11 | MHC.OFFVIS ---
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 Bilingual Medical Assistant: Bilingual Medical Assistant Present ([place]) Accompanied by: Self / Same As Patient Allergies bee pollen Allergy (Intermediate, Verified 03/18/25 15:20) swelling itchy Medication List - Last Reconciled 03/18/25 by Areli Nixon CNM albuterol sulfate 90 mcg/actuation (ProAir HFA) 1 inh inhalation Q4-6H PRN buspirone 5 mg PO ONCE PRN 90 days cetirizine (Zyrtec) 10 mg PO DAILY PRN diclofenac sodium 50 mg PO BID 30 days fluoxetine 10 mg PO DAILY 90 days gabapentin 300 mg PO BEDTIME 90 days glycopyrrolate 1 mg PO BID-TID PRN lidocaine 5% (Lidoderm) 1 patch topical DAILY Is last menstrual period known: Yes Last menstrual period: 02/13/25 Post menopausal: No Patient : No HPI HPI 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 One thing of note is that she has very low libido and she just feels like she has not had libido in a long time that it has just gone and it was partly a mental way of coping with bad relationship she had had in the past though she feels she is in a good relationship now. She feels herself hot all the time she has not been able to lose weight and she feels that she has not been motivated as much to do it and she has been low energy. She is on fluoxetine and another medication for that she takes PRN. She does have a therapist. She is about to be laid off which is a seasonal thing she is going to be moving into a house in [facility] with her partner she feels it is a good relationship. She stopped the pills a few months ago because she felt she probably did not really need to be taking them because he went to his doctor and found out that he had a low sperm count. 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 On the other hand she just saw on TV that another women in the [facility] also named Bernice with a didelphys uterus just had twins. She has always had irregular periods her entire life and she feels like she is going to get a period with cramping now but her last period was February 10 or and it lasted about 2 days. When she went off the pills in the summer she did not get a period for 2 months. She feels hot all the time and she is wondering what can be checked to see what is up with that. She has had her thyroid checked she has had chemistry labs done she feels she does not qualify for any of the GLP 1 medications and in any case she thinks she would rather do it on her own but she is not really motivated yet. [facility] Medical History Uterus didelphus Tonsillectomy planned Asthma COVID-19 long hauler Cough present for greater than 3 weeks Surgical History Lenore teeth extracted Social History Housing: House Alcohol intake: current Alcohol intake frequency: holidays/special occasions only Patient Tobacco Use Status: Never used Tobacco e-Cigarette/Vaping Use: Never Used Second Hand Smoke Exposure: No Current occupational status: unemployed Cognitive needs: No Hearing needs: No Vision needs: No Female Reproductive History Menstrual Age of Menarche: 11 Date of last menstrual period: 02/13/25 control method: pills Total pregnancies: 0 Date of last pap smear: 01/29/23 (negative pap smear, negative hpv (both left and right cervixes)) History of abnormal pap smear: Yes (2018 ASCUS) Physical Exam Vital Signs: Last Vital Signs BP 118/76 03/18/25 15:22 BMI result Body Mass Index 35.4 Const General: healthy appearing, comfortable, no acute distress, well developed and alert Nutritional Appearance: average body habitus Orientation/consciousness: patient oriented x3 Limitations: no limitations HEENT Head: Yes normocephalic Neck Neck: Yes normal visual inspection Chest Chest palpation & inspection: normal inspection of the chest Breast/axilla inspection: normal inspection of the breasts and normal inspection of the axillae Breast/axilla palpation: normal palpation of the breasts and normal palpation of the axillae Resp Effort & Inspection: normal respiratory effort GI Inspection: Yes normal to inspection, No Abdominal wall edema and No distended Palpation (GI): Soft to palpation and nontender Other: PATIENT HAS A KNOWN DIDELPHYS UTERUS/uteri WITH 2 CERVIXeS. SHE WAS NOT DUE FOR PAP SMEAR TODAY AND SHE DECLINED TESTING FOR STIS SHE HAS NO vaginal CONCERNS. Speculum exam was done difficult to see cervix is right side is more visible than left both pink healthy appearing normal mucus. Difficult to palpate uterii. Nothing feels enlarged or nontender adnexa non tender good muscle tone. General: Yes bladder normal to palpation External Female Exam: normal external appearance and normal appearance of the urethra Speculum Exam - Vagina: normal appearance of the vagina, normal palpation and normal vaginal discharge Speculum Exam - Cervix: normal palpation and nontender Bimanual exam- vagina & uterus: normal bimanual exam, normal palpation, bladder normal to palpation, consistency normal, normal palpation, uterine mobility normal, No Cervical tenderness present, non-tender and no cervical motion tenderness Bimanual Exam- Adnexa, other: normal adnexae, no masses, normal and No adnexal tenderness Neuro General: patient oriented x3 Assessment & Plan Assessment & Plan (1) Counseling for control, oral contraceptives: Code(s): Z30.09 - Encounter for other general counseling and advice on contraception Category: Medical (2) Cervical cancer screening: Comment: 11/20/2021 Pap smears: A, right cervix, (previously had ASCUS)-equals negative with negative HPV 2021; 01/29/2023 Pap negative with HPV negative. B. Left cervix, equals negative with negative HPV 2021; 01/29/2023 Pap negative HPV negative. Code(s): Z12.4 - Encounter for screening for malignant neoplasm of cervix Category: Medical (3) Uterus didelphus: Code(s): Q51.28 - Other and unspecified doubling of uterus Category: Medical (4) Lack of libido: Comment: Discussed, will try lower dose OCP.; even going off the control pills did not help lengthy discussion about the possible role of her other medications. Patient wishes to go back on her original OCP prescription 03/18/2025. Code(s): F52.0 - Hypoactive sexual desire disorder Category: Medical (5) Well woman exam with routine gynecological exam: Code(s): Z01.419 - Encounter for gynecological examination (general) (routine) without abnormal findings Category: Medical (6) Anxiety, generalized: Code(s): F41.1 - Generalized anxiety disorder Category: Medical (7) Obesity (BMI 35.0-39.9 without comorbidity): Code(s): E66.9 - Obesity, unspecified Category: Medical Plan -----Discussed in this visit the following: healthy balanced diet, regular and consistent exercise, getting recommended health screens, doing the best she can for her particular health concerns, kegel exercises, pap smear screening and followup recommendations, mammography screening and SBE, normal changes in cycles in her life stage--- . Discussed all of the issues in HPI mostly revolving around her feeling hot and her low libido and her normal thyroid labs and normal previous testing for testosterone and lack of PCOS symptoms though she does have a history of irregular menses but previous labs have been normal. She has a known didelphys uterus with 2 cervix is and most recent Pap smears were normal she is not due for Pap this year and she does not need STI testing she was considering just staying off of the pills but I did discuss that it was not good to ever go more than 3 months without a.. Also discussed the connection between weight and regular menses. Since she has never had regular menses ever in her life if she misses more than 3 months she would need to investigate that and do something to regulate her menses going forward. Given this she decided to resume the control pills she actually feels like she might be getting ready to get a period because she is getting some cramping and it is due she is not also been keeping track of her period and I urged her to please keep track that especially if she goes off the pills and has a history of irregular menses it is even more important that she keep track so she has some idea where she is and when to seek further medical guidance. But given that she wants to resume the pills she also decided that she wanted to go back on the control pills that she had been on for years before (she had thought that they might have something to do with her decreased libido so that is why we had lowered the dose last time but she wants to resume the original formulation. She is to start the pills when she is very sure that she has a period. I am sending that refills prescription for 1 year. Reviewed that it would worthwhile having a discussion with her partner about whether not he was told that he is actually infertile before she depends on lack of contraception. I reviewed all of the labs that she has had done with her primary and in recent years there have been no elevated thyroid levels or testosterone levels or glucose or any other levels other than triglycerides which she improved by cutting out cheese. She will be moving to a new house in a week and is looking forward to that and is hoping that being in a new environment and with lots of new things to do when she is seasonally laid off from her job that it will give her time to exercise and really work on weight loss. Medications: Refilled norethindrone-ethin estradiol 1-35 mg-mcg (Nortrel) 1 tab PO DAILY 84 tabs 4RF Coding Level of Care Code Est Pt Prev Care [id number]([id number]) Diagnoses Counseling for control, oral contraceptives Z30.09 Cervical cancer screening Z12.4 Uterus didelphus Q51.28 Lack of libido F52.0 Well woman exam with routine gynecological exam Z01.419 Anxiety, generalized F41.1 Obesity (BMI 35.0-39.9 without comorbidity) E66.9
[2025-03-18 15:22] VITALS: BP 118/76; BMI 35.4
== END 2025-03-18 16:31 | disposition home or self-care (01) ==
LOC: HO.HWS 15:00
PROVIDERS: PCP Internal Medicine; Visit Provider Advanced Practice Midwife
DX: Z01.419 Encounter for gynecological examination (general) (routine) without abnormal findings (principal); Q51.28 Other and unspecified doubling of uterus; E66.9 Obesity, unspecified; Z68.35 Body mass index [BMI] 35.0-35.9, adult; Z30.09 Encounter for other general counseling and advice on contraception; F52.0 Hypoactive sexual desire disorder; F41.1 Generalized anxiety disorder
CPT/HCPCS: 99395; 99459

== ENCOUNTER → 2025-03-18 14:59 | Outpatient (BNVA) | payer OTHER, SELFPAY | PROVIDERS: PCP Internal Medicine; Visit Provider Advanced Practice Midwife | DX: Z01.419 Encounter for gynecological examination (general) (routine) without abnormal findings (principal); F41.1 Generalized anxiety disorder; E66.9 Obesity, unspecified; Q51.28 Other and unspecified doubling of uterus | CPT/HCPCS: 99395 ==